=== PATIENT | female | born 1950 | race Two or more races ===

== ENCOUNTER 2021-07-19 10:08 | Inpatient (IN) | payer MEDICARE, BC, OTHER ==
[~2021-07-19] VITALS: Ht 165.1 cm; Wt 87.1 kg
[2021-07-19] MEDS ORDERED: AZITHROMYCIN 500 MG in DEXT 5% WATER 250 ML IV SCH (10:45)
[2021-07-19] MEDS ORDERED: CEFTRIAXONE 1 G PREMIX 50 ML IV ONE (10:45)
[2021-07-19] MEDS ORDERED: DEXAMETHASONE 4MG/ML 1ML VIAL IV ONE (10:45)
[2021-07-19 11:05] LABS: BG BASE EXCESS 0.2 mmol/L (-2.0-2.0); BG CARBOXYHEMOGLOBIN 0.9 % (0.5-1.5); BG DEOXYHEMOGLOBIN 3.8 % (0.0-5.0); BG HCO3 ACT 23.2 mmol/L (22.0-26.0); BG METHEMOGLOBIN 0.2 % (0.0-1.5); BG OXYGEN SATURATION 96.2 % (92.0-98.5); BG OXYHEMOGLOBIN 95.1 % (94.0-97.0); BG PCO2 32.9 mmHg (35.0-45.0); BG PH 7.466 (7.350-7.450); BG PO2 82.8 mmHg (75.0-100.0); BG SAMPLE SITE RIGHT RADIAL; BG VENT MODE MASK - NRB
[2021-07-19 13:33] LABS: BASOPHILS % 1.2 % (0.0-2.0); EOSINOPHILS % 0.3 % (0.0-5.0); HEMATOCRIT. 41.3 % (36.0-48.0); HEMOGLOBIN. 14.1 g/dL (12.0-16.0); LYMPHOCYTES % 12.5 % (20.0-50.0); MEAN CORPUSCULAR HEMOGLOBIN 30.4 pg (28.0-32.0); MEAN CORPUSCULAR VOLUME 88.8 fL (81.0-99.0); MEAN PLATELET VOLUME 9.3 fl (7.4-10.4); MONOCYTES % 6.1 % (2.0-8.0); NEUTROPHILS % 79.9 % (40.0-76.0); PLATELET 123 x1000/uL (130-400); RED BLOOD CELL COUNT 4.65 mill/uL (4.2-5.4); RED CELL DISTRIBUTION WIDTH 14.4 % (11.6-14.6)
[2021-07-19 13:40] LABS: CHLORIDE 102 mEq/L (98-107)
[2021-07-19 16:45] VITALS: BP 150/82
[2021-07-19] MEDS ORDERED: IPRATROPIUM/ALBUTEROL 0.5-3(2.5)MG/3ML NEB HHN PRN (17:45)
[2021-07-19] MEDS ORDERED: MAGNESIUM/ALUMINUM HYDROXIDE/SIMETHICONE 30ML UDC PO PRN (17:45)
[2021-07-19] MEDS ORDERED: DOCUSATE SODIUM 100MG CAPSULE PO PRN (17:45)
[2021-07-19] MEDS ORDERED: NALOXONE HCL 0.4MG/ML VIAL IV PRN (18:15)
[2021-07-19] MEDS: ENOXAPARIN 40MG/0.4ML SYR SUBCUT SCH (18:21)
[2021-07-19 20:00] VITALS: BP 134/60
[2021-07-19] MEDS: SODIUM CHLORIDE 0.9% INJ 3ML FLUSH IVF SCH (21:35)
[2021-07-20] VITALS: BP 153/66
[2021-07-20 04:00] VITALS: BP 156/74
[2021-07-20] MEDS: SODIUM CHLORIDE 0.9% INJ 3ML FLUSH IVF SCH ×3 (05:46→20:25)
[2021-07-20 06:14] LABS: BASOPHILS % 0.4 % (0.0-2.0); HEMATOCRIT. 40.2 % (36.0-48.0); HEMOGLOBIN. 13.5 g/dL (12.0-16.0); LYMPHOCYTES % 9.7 % (20.0-50.0); MEAN CORPUSCULAR HEMOGLOBIN 30.1 pg (28.0-32.0); MEAN CORPUSCULAR VOLUME 89.7 fL (81.0-99.0); MEAN PLATELET VOLUME 9.4 fl (7.4-10.4); MONOCYTES % 8.6 % (2.0-8.0); NEUTROPHILS % 81.3 % (40.0-76.0); PLATELET 163 x1000/uL (130-400); RED BLOOD CELL COUNT 4.48 mill/uL (4.2-5.4); RED CELL DISTRIBUTION WIDTH 14.4 % (11.6-14.6)
[2021-07-20 06:36] LABS: CHLORIDE 101 mEq/L (98-107)
[2021-07-20 08:00] VITALS: BP 150/51
[2021-07-20] MEDS: DEXAMETHASONE 10 MG/ML VIAL IV SCH (08:13)
[2021-07-20] MEDS: CEFTRIAXONE 1,000 MG in DEXTROSE 5% WATER 50 ML IV SCH (11:06)
[2021-07-20] MEDS: AZITHROMYCIN 500 MG in DEXT 5% WATER 250 ML IV SCH (11:06)
[2021-07-20 12:00] VITALS: BP 132/66
[2021-07-20 15:31] LABS: CLARITY URINE CLEAR (CLEAR); COLOR URINE YELLOW (YELLOW); KETONES URINE NEGATIVE (NEGATIVE); LEUKOCYTE ESTERASE URINE NEGATIVE (NEGATIVE); NITRITE URINE NEGATIVE (NEGATIVE); OCCULT BLOOD URINE NEGATIVE (NEGATIVE); PH URINE 5.5 (4.5-8.0); PROTEIN URINE 1+ (NEGATIVE); SPECIFIC GRAVITY URINE 1.021 (1.005-1.030)
[2021-07-20 16:00] VITALS: BP 139/64
[2021-07-20] MEDS: ENOXAPARIN 40MG/0.4ML SYR SUBCUT SCH (18:12)
[2021-07-20 18:54] LABS: BG BASE EXCESS 2.3 mmol/L (-2.0-2.0); BG CARBOXYHEMOGLOBIN 0.6 % (0.5-1.5); BG DEOXYHEMOGLOBIN 10.4 % (0.0-5.0); BG FRACTION INSPIRED OXYGEN 100; BG HCO3 ACT 26.2 mmol/L (22.0-26.0); BG METHEMOGLOBIN 0.1 % (0.0-1.5); BG OXYGEN SATURATION 89.5 % (92.0-98.5); BG OXYHEMOGLOBIN 88.9 % (94.0-97.0); BG PCO2 38.2 mmHg (35.0-45.0); BG PH 7.454 (7.350-7.450); BG PO2 56.7 mmHg (75.0-100.0); BG SAMPLE SITE LEFT RADIAL; BG TOTAL HEMOGLOBIN 14.2 g/dL (12.0-18.0); BG VENT MODE MASK - NRB
[2021-07-20 20:00] VITALS: BP 156/95
[2021-07-20] MEDS: ASCORBIC ACID 500 MG TABLET PO SCH (20:25)
[2021-07-21 00:46] VITALS: BP 148/74
[2021-07-21 04:00] VITALS: BP 142/55
[2021-07-21] MEDS: SODIUM CHLORIDE 0.9% INJ 3ML FLUSH IVF SCH ×3 (05:32→21:38)
[2021-07-21 08:00] VITALS: BP 157/67
[2021-07-21] MEDS: ALBUTEROL 6.7GM HFA INHALER ORI PRN (08:11)
[2021-07-21] MEDS: CHOLECALCIFEROL (D3) 1000 UNIT TABLET PO SCH (08:12)
[2021-07-21] MEDS: DEXAMETHASONE 10 MG/ML VIAL IV SCH (08:12)
[2021-07-21] MEDS: ASCORBIC ACID 500 MG TABLET PO SCH ×2 (08:12→21:38)
[2021-07-21] MEDS: GUAIFENESIN 200MG/10ML SUGAR FREE UDC PO PRN (08:12)
[2021-07-21] MEDS: CEFTRIAXONE 1,000 MG in DEXTROSE 5% WATER 50 ML IV SCH (11:22)
[2021-07-21 12:00] VITALS: BP 138/79
[2021-07-21] MEDS: AZITHROMYCIN 500 MG in DEXT 5% WATER 250 ML IV SCH (12:15)
[2021-07-21 16:00] VITALS: BP 132/60
[2021-07-21] MEDS: ENOXAPARIN 40MG/0.4ML SYR SUBCUT SCH (18:38)
[2021-07-21 20:34] VITALS: BP 150/70
[2021-07-22] MEDS: HYDRALAZINE 20MG/ML VIAL IV PRN ×3 (00:24→16:44)
[2021-07-22] MEDS: MORPHINE SULFATE 2 MG/ML CPJ (NOT FOR IM USE) IV PRN (00:26)
[2021-07-22 00:28] VITALS: BP 201/86
[2021-07-22 04:00] VITALS: BP 147/63
[2021-07-22] MEDS: SODIUM CHLORIDE 0.9% INJ 3ML FLUSH IVF SCH ×3 (06:04→22:00)
[2021-07-22] MEDS: HYDROCODONE/ACETAMINOPHEN 5/325MG TABLET PO PRN (06:04)
[2021-07-22 08:00] VITALS: BP 161/73
[2021-07-22] MEDS: CHOLECALCIFEROL (D3) 1000 UNIT TABLET PO SCH (08:10)
[2021-07-22] MEDS: DEXAMETHASONE 10 MG/ML VIAL IV SCH (08:10)
[2021-07-22] MEDS: ASCORBIC ACID 500 MG TABLET PO SCH ×2 (08:10→20:48)
[2021-07-22] MEDS: CEFTRIAXONE 1,000 MG in DEXTROSE 5% WATER 50 ML IV SCH (11:18)
[2021-07-22] MEDS: AZITHROMYCIN 500 MG in DEXT 5% WATER 250 ML IV SCH (11:19)
[2021-07-22 12:00] VITALS: BP 121/73
[2021-07-22] MEDS: LORAZEPAM 2MG/ML CPJ IV PRN (13:17)
[2021-07-22 16:00] VITALS: BP 188/77
[2021-07-22 20:00] VITALS: BP 172/86
[2021-07-22] MEDS: ALBUTEROL 6.7GM HFA INHALER ORI PRN (20:39)
[2021-07-22] MEDS: ENOXAPARIN 40MG/0.4ML SYR SUBCUT SCH (20:47)
[2021-07-23] VITALS: BP 173/84
[2021-07-23] MEDS: CLONIDINE 0.1MG TABLET PO PRN (00:22)
[2021-07-23] MEDS: ALBUTEROL 6.7GM HFA INHALER ORI PRN ×2 (00:41→05:54)
[2021-07-23 04:00] VITALS: BP 132/75
[2021-07-23] MEDS: HYDROCODONE/ACETAMINOPHEN 5/325MG TABLET PO PRN (05:39)
[2021-07-23] MEDS: SODIUM CHLORIDE 0.9% INJ 3ML FLUSH IVF SCH ×3 (06:00→21:12)
[2021-07-23] MEDS: LORAZEPAM 2MG/ML CPJ IV PRN (06:04)
[2021-07-23] MEDS: ASCORBIC ACID 500 MG TABLET PO SCH ×2 (09:15→21:12)
[2021-07-23] MEDS: CHOLECALCIFEROL (D3) 1000 UNIT TABLET PO SCH (09:16)
[2021-07-23] MEDS: DEXAMETHASONE 10 MG/ML VIAL IV SCH (09:16)
[2021-07-23] MEDS: CEFTRIAXONE 1,000 MG in DEXTROSE 5% WATER 50 ML IV SCH (11:53)
[2021-07-23] MEDS: AZITHROMYCIN 500 MG in DEXT 5% WATER 250 ML IV SCH (11:54)
[2021-07-23 12:00] VITALS: BP 137/65
[2021-07-23 16:00] VITALS: BP 129/70
[2021-07-23] MEDS: ENOXAPARIN 40MG/0.4ML SYR SUBCUT SCH (19:03)
[2021-07-23 20:00] VITALS: BP 137/61
[2021-07-24] VITALS: BP 174/69
[2021-07-24] MEDS: CLONIDINE 0.1MG TABLET PO PRN (00:47)
[2021-07-24 04:00] VITALS: BP 124/58
[2021-07-24] MEDS: SODIUM CHLORIDE 0.9% INJ 3ML FLUSH IVF SCH ×3 (06:12→22:42)
[2021-07-24 08:00] VITALS: BP 170/64
[2021-07-24] MEDS: ASCORBIC ACID 500 MG TABLET PO SCH ×2 (09:07→20:11)
[2021-07-24] MEDS: DEXAMETHASONE 10 MG/ML VIAL IV SCH (09:07)
[2021-07-24] MEDS: CHOLECALCIFEROL (D3) 1000 UNIT TABLET PO SCH (09:07)
[2021-07-24] MEDS: CEFTRIAXONE 1,000 MG in DEXTROSE 5% WATER 50 ML IV SCH (10:13)
[2021-07-24] MEDS: MORPHINE SULFATE 2 MG/ML CPJ (NOT FOR IM USE) IV PRN (10:47)
[2021-07-24 12:00] VITALS: BP 125/62
[2021-07-24 16:00] VITALS: BP 120/65
[2021-07-24 20:00] VITALS: BP 145/67
[2021-07-24] MEDS: ENOXAPARIN 40MG/0.4ML SYR SUBCUT SCH (20:11)
[2021-07-24] MEDS: ACETAMINOPHEN 325MG TABLET PO PRN (20:11)
[2021-07-25] VITALS: BP 165/74
[2021-07-25] MEDS ORDERED: MORPHINE SULFATE 2 MG/ML CPJ (NOT FOR IM USE) IV PRN (01:15)
[2021-07-25 04:00] VITALS: BP 140/79
[2021-07-25] MEDS: SODIUM CHLORIDE 0.9% INJ 3ML FLUSH IVF SCH ×3 (05:15→20:30)
[2021-07-25 07:48] LABS: HEMATOCRIT. 39.2 % (36.0-48.0); MEAN CORPUSCULAR HEMOGLOBIN 30.2 pg (28.0-32.0); MEAN CORPUSCULAR VOLUME 91.2 fL (81.0-99.0); MEAN PLATELET VOLUME 9.2 fl (7.4-10.4); PLATELET 279 x1000/uL (130-400); RED CELL DISTRIBUTION WIDTH 14.6 % (11.6-14.6)
[2021-07-25 08:00] VITALS: BP 136/66
[2021-07-25 08:17] LABS: CHLORIDE 104 mEq/L (98-107)
[2021-07-25] MEDS: CHOLECALCIFEROL (D3) 1000 UNIT TABLET PO SCH (09:01)
[2021-07-25] MEDS: DEXAMETHASONE 10 MG/ML VIAL IV SCH (09:01)
[2021-07-25] MEDS: ASCORBIC ACID 500 MG TABLET PO SCH ×2 (09:01→20:30)
[2021-07-25 12:00] VITALS: BP 143/59
[2021-07-25 14:44] LABS: PLATELET ESTIMATE NORMAL
[2021-07-25 16:00] VITALS: BP 122/65
[2021-07-25] MEDS: HYDROCODONE/ACETAMINOPHEN 5/325MG TABLET PO PRN (17:32)
[2021-07-25 20:00] VITALS: BP 116/64
[2021-07-25] MEDS: ENOXAPARIN 40MG/0.4ML SYR SUBCUT SCH (20:30)
[2021-07-25] MEDS: CLONIDINE 0.1MG TABLET PO PRN (23:32)
[2021-07-26] VITALS: BP 165/64
[2021-07-26 04:00] VITALS: BP 169/82
[2021-07-26] MEDS: GUAIFENESIN 200MG/10ML SUGAR FREE UDC PO PRN (05:53)
[2021-07-26] MEDS: HYDRALAZINE 20MG/ML VIAL IV PRN (05:54)
[2021-07-26] MEDS: SODIUM CHLORIDE 0.9% INJ 3ML FLUSH IVF SCH ×3 (05:55→21:34)
[2021-07-26] MEDS: HYDROCODONE/ACETAMINOPHEN 5/325MG TABLET PO PRN (05:58)
[2021-07-26] MEDS: ASCORBIC ACID 500 MG TABLET PO SCH ×2 (08:17→21:34)
[2021-07-26] MEDS: CHOLECALCIFEROL (D3) 1000 UNIT TABLET PO SCH (08:17)
[2021-07-26] MEDS: DEXAMETHASONE 10 MG/ML VIAL IV SCH (08:17)
[2021-07-26 12:00] VITALS: BP 146/80
[2021-07-26 16:00] VITALS: BP 138/80
[2021-07-26 17:21] LABS: HEMATOCRIT. 40.2 % (36.0-48.0); HEMOGLOBIN. 13.4 g/dL (12.0-16.0); MEAN CORPUSCULAR HEMOGLOBIN 30.2 pg (28.0-32.0); MEAN CORPUSCULAR VOLUME 90.5 fL (81.0-99.0); MEAN PLATELET VOLUME 9.7 fl (7.4-10.4); PLATELET 284 x1000/uL (130-400); RED BLOOD CELL COUNT 4.44 mill/uL (4.2-5.4); RED CELL DISTRIBUTION WIDTH 14.7 % (11.6-14.6)
[2021-07-26 17:46] LABS: CHLORIDE 103 mEq/L (98-107)
[2021-07-26 18:06] LABS: PLATELET ESTIMATE NORMAL
[2021-07-26] MEDS: ENOXAPARIN 40MG/0.4ML SYR SUBCUT SCH (18:14)
[2021-07-26 20:00] VITALS: BP 151/82
[2021-07-27] VITALS: BP 141/60
[2021-07-27 04:00] VITALS: BP 150/72
[2021-07-27] MEDS: SODIUM CHLORIDE 0.9% INJ 3ML FLUSH IVF SCH ×3 (05:32→21:01)
[2021-07-27 08:00] VITALS: BP 154/70
[2021-07-27] MEDS: ASCORBIC ACID 500 MG TABLET PO SCH ×2 (08:26→21:01)
[2021-07-27] MEDS: DEXAMETHASONE 10 MG/ML VIAL IV SCH (08:27)
[2021-07-27] MEDS: CHOLECALCIFEROL (D3) 1000 UNIT TABLET PO SCH (08:27)
[2021-07-27 09:37] LABS: HEMATOCRIT. 38.2 % (36.0-48.0); HEMOGLOBIN. 12.6 g/dL (12.0-16.0); MEAN CORPUSCULAR HEMOGLOBIN 29.9 pg (28.0-32.0); MEAN CORPUSCULAR VOLUME 90.8 fL (81.0-99.0); MEAN PLATELET VOLUME 9.5 fl (7.4-10.4); PLATELET 279 x1000/uL (130-400); RED CELL DISTRIBUTION WIDTH 14.7 % (11.6-14.6)
[2021-07-27 09:49] LABS: CHLORIDE 104 mEq/L (98-107)
[2021-07-27] MEDS ORDERED: LIDOCAINE HCL 1% 20ML VIAL (Pyxis) INJ ONE (10:03)
[2021-07-27 10:55] LABS: PLATELET ESTIMATE NORMAL
[2021-07-27 12:00] VITALS: BP 130/66
[2021-07-27] MEDS: HYDROCODONE/ACETAMINOPHEN 5/325MG TABLET PO PRN ×2 (13:47→21:01)
[2021-07-27 16:00] VITALS: BP 185/88
[2021-07-27] MEDS: ENOXAPARIN 40MG/0.4ML SYR SUBCUT SCH (18:05)
[2021-07-27 20:00] VITALS: BP 161/94
[2021-07-27] MEDS: GUAIFENESIN 200MG/10ML SUGAR FREE UDC PO PRN (21:01)
[2021-07-27] MEDS: DIPHENHYDRAMINE 50MG/ML VIAL IV PRN (21:01)
[2021-07-27] MEDS: HYDRALAZINE 20MG/ML VIAL IV PRN (23:36)
[2021-07-28] VITALS: BP 179/87
[2021-07-28] MEDS: DIPHENHYDRAMINE 50MG/ML VIAL IV PRN (01:15)
[2021-07-28] MEDS: LORAZEPAM 0.5MG TABLET PO PRN ×2 (02:28→23:04)
[2021-07-28] MEDS: HYDROCODONE/ACETAMINOPHEN 5/325MG TABLET PO PRN ×3 (02:35→22:36)
[2021-07-28 04:00] VITALS: BP 133/81
[2021-07-28] MEDS: SODIUM CHLORIDE 0.9% INJ 3ML FLUSH IVF SCH ×4 (05:10→21:41)
[2021-07-28 08:00] VITALS: BP 130/79
[2021-07-28] MEDS: CHOLECALCIFEROL (D3) 1000 UNIT TABLET PO SCH (08:42)
[2021-07-28] MEDS: DEXAMETHASONE 10 MG/ML VIAL IV SCH (08:42)
[2021-07-28] MEDS: ASCORBIC ACID 500 MG TABLET PO SCH ×2 (08:42→21:40)
[2021-07-28 11:00] VITALS: BP 146/86
[2021-07-28] MEDS ORDERED: SODIUM CHLORIDE 45ML SPRAY NS PRN (15:00)
[2021-07-28 16:00] VITALS: BP 144/83
[2021-07-28] MEDS: ENOXAPARIN 40MG/0.4ML SYR SUBCUT SCH (18:03)
[2021-07-28 20:00] VITALS: BP 138/84
[2021-07-29] VITALS: BP 142/76
[2021-07-29 08:00] VITALS: BP 167/77
[2021-07-29] MEDS: HYDROCODONE/ACETAMINOPHEN 5/325MG TABLET PO PRN (08:51)
[2021-07-29] MEDS: CHOLECALCIFEROL (D3) 1000 UNIT TABLET PO SCH (08:51)
[2021-07-29] MEDS: DEXAMETHASONE 10 MG/ML VIAL IV SCH (08:52)
[2021-07-29] MEDS: ASCORBIC ACID 500 MG TABLET PO SCH ×2 (08:52→20:43)
[2021-07-29 12:00] VITALS: BP 140/81
[2021-07-29] MEDS ORDERED: IPRATROPIUM/ALBUTEROL 0.5-3(2.5)MG/3ML NEB HHN PRN (12:45)
[2021-07-29] MEDS: SODIUM CHLORIDE 0.9% INJ 3ML FLUSH IVF SCH ×2 (17:29→22:14)
[2021-07-29] MEDS: METHYLPREDNISOLONE SOD SUCC 40 MG/ML VIAL IV SCH ×2 (17:44→20:42)
[2021-07-29 18:00] VITALS: BP 172/105
[2021-07-29] MEDS: HYDRALAZINE 20MG/ML VIAL IV PRN (18:06)
[2021-07-29] MEDS: LORAZEPAM 0.5MG TABLET PO PRN (18:45)
[2021-07-29 20:00] VITALS: BP 140/74
[2021-07-29] MEDS: ENOXAPARIN 40MG/0.4ML SYR SUBCUT SCH (20:42)
[2021-07-29 22:00] VITALS: BP 140/78
[2021-07-30] VITALS (21 sets, daily range): BP systolic 129–167; BP diastolic 69–129
[2021-07-30] MEDS: LORAZEPAM 0.5MG TABLET PO PRN (00:39)
[2021-07-30] MEDS: METHYLPREDNISOLONE SOD SUCC 40 MG/ML VIAL IV SCH ×3 (04:05→20:56)
[2021-07-30] MEDS: HYDRALAZINE 20MG/ML VIAL IV PRN (05:20)
[2021-07-30] MEDS: SODIUM CHLORIDE 0.9% INJ 3ML FLUSH IVF SCH ×3 (05:20→22:55)
[2021-07-30] MEDS: CHOLECALCIFEROL (D3) 1000 UNIT TABLET PO SCH (08:44)
[2021-07-30] MEDS: ASCORBIC ACID 500 MG TABLET PO SCH ×2 (08:44→20:56)
[2021-07-30] MEDS: ENOXAPARIN 40MG/0.4ML SYR SUBCUT SCH (17:50)
[2021-07-30] MEDS: ACETAMINOPHEN 325MG TABLET PO PRN (21:06)
[2021-07-30] MEDS ORDERED: NALOXONE HCL 0.4MG/ML VIAL IV PRN (23:30)
[2021-07-30] MEDS: MORPHINE SULFATE 2 MG/ML CPJ (NOT FOR IM USE) IV PRN (23:31)
[2021-07-31] VITALS (12 sets, daily range): BP systolic 127–155; BP diastolic 41–93
[2021-07-31] MEDS: HYDRALAZINE 20MG/ML VIAL IV PRN ×2 (00:47→08:47)
[2021-07-31] MEDS: METHYLPREDNISOLONE SOD SUCC 40 MG/ML VIAL IV SCH ×3 (05:23→21:10)
[2021-07-31] MEDS: SODIUM CHLORIDE 0.9% INJ 3ML FLUSH IVF SCH ×3 (05:23→21:10)
[2021-07-31] MEDS: CHOLECALCIFEROL (D3) 1000 UNIT TABLET PO SCH (08:47)
[2021-07-31] MEDS: LORAZEPAM 0.5MG TABLET PO PRN (08:47)
[2021-07-31] MEDS: ASCORBIC ACID 500 MG TABLET PO SCH ×2 (08:47→21:10)
[2021-07-31] MEDS: IPRATROPIUM/ALBUTEROL 0.5-3(2.5)MG/3ML NEB HHN SCH ×2 (12:08→20:33)
[2021-07-31] MEDS: ENOXAPARIN 40MG/0.4ML SYR SUBCUT SCH (18:38)
[2021-08-01] VITALS (13 sets, daily range): BP systolic 117–168; BP diastolic 55–94
[2021-08-01] MEDS: IPRATROPIUM/ALBUTEROL 0.5-3(2.5)MG/3ML NEB HHN SCH ×4 (00:47→21:01)
[2021-08-01] MEDS: SODIUM CHLORIDE 0.9% INJ 3ML FLUSH IVF SCH ×3 (05:00→21:35)
[2021-08-01] MEDS: METHYLPREDNISOLONE SOD SUCC 40 MG/ML VIAL IV SCH ×3 (05:00→21:34)
[2021-08-01] MEDS: CHOLECALCIFEROL (D3) 1000 UNIT TABLET PO SCH (09:57)
[2021-08-01] MEDS: ASCORBIC ACID 500 MG TABLET PO SCH ×2 (09:57→21:34)
[2021-08-01] MEDS: HYDRALAZINE 20MG/ML VIAL IV PRN (12:44)
[2021-08-01] MEDS: ENOXAPARIN 40MG/0.4ML SYR SUBCUT SCH (18:16)
[2021-08-01] MEDS: MORPHINE SULFATE 2 MG/ML CPJ (NOT FOR IM USE) IV PRN (22:20)
[2021-08-02] VITALS (11 sets, daily range): BP systolic 112–157; BP diastolic 59–83
[2021-08-02] MEDS: METHYLPREDNISOLONE SOD SUCC 40 MG/ML VIAL IV SCH ×3 (03:30→21:36)
[2021-08-02] MEDS: CLONIDINE 0.1MG TABLET PO PRN (03:31)
[2021-08-02] MEDS: IPRATROPIUM/ALBUTEROL 0.5-3(2.5)MG/3ML NEB HHN SCH ×4 (04:03→21:33)
[2021-08-02] MEDS: SODIUM CHLORIDE 0.9% INJ 3ML FLUSH IVF SCH ×3 (05:44→21:36)
[2021-08-02] MEDS: CHOLECALCIFEROL (D3) 1000 UNIT TABLET PO SCH (09:16)
[2021-08-02] MEDS: ASCORBIC ACID 500 MG TABLET PO SCH ×2 (09:16→21:36)
[2021-08-02] MEDS: ENOXAPARIN 40MG/0.4ML SYR SUBCUT SCH (21:36)
[2021-08-02] MEDS: HYDRALAZINE 20MG/ML VIAL IV PRN (23:40)
[2021-08-03] VITALS (13 sets, daily range): BP systolic 117–168; BP diastolic 49–85
[2021-08-03] MEDS: IPRATROPIUM/ALBUTEROL 0.5-3(2.5)MG/3ML NEB HHN SCH ×4 (02:13→20:16)
[2021-08-03] MEDS: MORPHINE SULFATE 2 MG/ML CPJ (NOT FOR IM USE) IV PRN ×3 (03:38→11:43)
[2021-08-03] MEDS: METHYLPREDNISOLONE SOD SUCC 40 MG/ML VIAL IV SCH ×3 (03:38→21:25)
[2021-08-03] MEDS: SODIUM CHLORIDE 0.9% INJ 3ML FLUSH IVF SCH ×3 (06:36→21:26)
[2021-08-03 08:15] LABS: HEMATOCRIT 32.7 % (36.0-48.0); HEMOGLOBIN 10.6 g/dL (12.0-16.0); MEAN CORPUSCULAR HEMOGLOBIN 29.5 pg (28.0-32.0); MEAN CORPUSCULAR VOLUME 90.8 fL (81.0-99.0); PLATELET 168 x1000/uL (130-400); RED CELL DISTRIBUTION WIDTH 14.5 % (11.6-14.6)
[2021-08-03] MEDS: ASCORBIC ACID 500 MG TABLET PO SCH ×2 (08:34→21:26)
[2021-08-03] MEDS: CHOLECALCIFEROL (D3) 1000 UNIT TABLET PO SCH (08:35)
[2021-08-03 08:38] LABS: CHLORIDE 104 mEq/L (98-107)
[2021-08-03] MEDS: ENOXAPARIN 40MG/0.4ML SYR SUBCUT SCH (18:47)
[2021-08-03] MEDS: LORAZEPAM 0.5MG TABLET PO PRN (18:48)
[2021-08-04] VITALS (12 sets, daily range): BP systolic 128–159; BP diastolic 52–88
[2021-08-04] MEDS: IPRATROPIUM/ALBUTEROL 0.5-3(2.5)MG/3ML NEB HHN SCH ×4 (00:46→21:31)
[2021-08-04] MEDS: METHYLPREDNISOLONE SOD SUCC 40 MG/ML VIAL IV SCH ×3 (05:41→23:56)
[2021-08-04] MEDS: SODIUM CHLORIDE 0.9% INJ 3ML FLUSH IVF SCH ×3 (05:41→21:00)
[2021-08-04] MEDS: HYDRALAZINE 20MG/ML VIAL IV PRN (05:41)
[2021-08-04] MEDS: ASCORBIC ACID 500 MG TABLET PO SCH ×2 (08:32→20:55)
[2021-08-04] MEDS: CHOLECALCIFEROL (D3) 1000 UNIT TABLET PO SCH (08:32)
[2021-08-04] MEDS: HYDROCODONE/ACETAMINOPHEN 5/325MG TABLET PO PRN ×2 (12:06→20:56)
[2021-08-04] MEDS: MORPHINE SULFATE 2 MG/ML CPJ (NOT FOR IM USE) IV PRN (15:00)
[2021-08-04] MEDS: ENOXAPARIN 40MG/0.4ML SYR SUBCUT SCH (18:17)
[2021-08-04] MEDS: LORAZEPAM 0.5MG TABLET PO PRN (18:55)
[2021-08-04] MEDS: ONDANSETRON HCL 4MG/2ML INJ IV PRN (23:56)
[2021-08-05] VITALS (13 sets, daily range): BP systolic 70–176; BP diastolic 39–99
[2021-08-05] MEDS: CLONIDINE 0.1MG TABLET PO PRN (01:16)
[2021-08-05] MEDS: SODIUM CHLORIDE 0.9% INJ 3ML FLUSH IVF SCH ×3 (05:45→21:04)
[2021-08-05] MEDS: IPRATROPIUM/ALBUTEROL 0.5-3(2.5)MG/3ML NEB HHN SCH ×3 (07:49→21:34)
[2021-08-05] MEDS: ASCORBIC ACID 500 MG TABLET PO SCH ×2 (11:28→21:01)
[2021-08-05] MEDS: CHOLECALCIFEROL (D3) 1000 UNIT TABLET PO SCH (11:28)
[2021-08-05] MEDS: METHYLPREDNISOLONE SOD SUCC 40 MG/ML VIAL IV SCH (14:11)
[2021-08-05] MEDS: ENOXAPARIN 40MG/0.4ML SYR SUBCUT SCH (19:55)
[2021-08-05] MEDS: ONDANSETRON HCL 4MG/2ML INJ IV PRN (21:01)
[2021-08-05] MEDS: DIPHENHYDRAMINE 50MG/ML VIAL IV PRN (21:01)
[2021-08-06] VITALS (14 sets, daily range): BP systolic 112–160; BP diastolic 52–95
[2021-08-06] MEDS: METHYLPREDNISOLONE SOD SUCC 40 MG/ML VIAL IV SCH ×2 (00:57→13:38)
[2021-08-06] MEDS: IPRATROPIUM/ALBUTEROL 0.5-3(2.5)MG/3ML NEB HHN SCH ×4 (02:21→21:15)
[2021-08-06] MEDS: HYDRALAZINE 20MG/ML VIAL IV PRN (03:15)
[2021-08-06] MEDS: SODIUM CHLORIDE 0.9% INJ 3ML FLUSH IVF SCH ×3 (05:01→21:01)
[2021-08-06] MEDS: CHOLECALCIFEROL (D3) 1000 UNIT TABLET PO SCH (10:01)
[2021-08-06] MEDS: ASCORBIC ACID 500 MG TABLET PO SCH ×2 (10:01→21:00)
[2021-08-07] VITALS (14 sets, daily range): BP systolic 121–155; BP diastolic 45–99
[2021-08-07] MEDS: METHYLPREDNISOLONE SOD SUCC 40 MG/ML VIAL IV SCH ×2 (00:42→12:00)
[2021-08-07] MEDS: IPRATROPIUM/ALBUTEROL 0.5-3(2.5)MG/3ML NEB HHN SCH ×4 (01:07→20:59)
[2021-08-07] MEDS: SODIUM CHLORIDE 0.9% INJ 3ML FLUSH IVF SCH ×3 (06:00→21:00)
[2021-08-07] MEDS: CHOLECALCIFEROL (D3) 1000 UNIT TABLET PO SCH (08:43)
[2021-08-07] MEDS: GUAIFENESIN 200MG/10ML SUGAR FREE UDC PO PRN (08:43)
[2021-08-07] MEDS: ASCORBIC ACID 500 MG TABLET PO SCH ×2 (08:43→20:57)
[2021-08-07] MEDS: ACETAMINOPHEN 325MG TABLET PO PRN ×2 (08:43→18:28)
[2021-08-08] VITALS (19 sets, daily range): BP systolic 105–175; BP diastolic 59–85
[2021-08-08] MEDS: IPRATROPIUM/ALBUTEROL 0.5-3(2.5)MG/3ML NEB HHN SCH ×3 (02:43→14:59)
[2021-08-08] MEDS: HYDRALAZINE 20MG/ML VIAL IV PRN (06:06)
[2021-08-08] MEDS: SODIUM CHLORIDE 0.9% INJ 3ML FLUSH IVF SCH ×3 (06:07→20:36)
[2021-08-08] MEDS: CHOLECALCIFEROL (D3) 1000 UNIT TABLET PO SCH (08:44)
[2021-08-08] MEDS: ASCORBIC ACID 500 MG TABLET PO SCH ×2 (08:44→20:36)
[2021-08-08] MEDS: METHYLPREDNISOLONE SOD SUCC 40 MG/ML VIAL IV SCH (08:45)
[2021-08-08] MEDS: ACETAMINOPHEN 325MG TABLET PO PRN (08:52)
[2021-08-09] VITALS (13 sets, daily range): BP systolic 107–161; BP diastolic 57–83
[2021-08-09] MEDS: IPRATROPIUM/ALBUTEROL 0.5-3(2.5)MG/3ML NEB HHN SCH ×4 (00:19→21:10)
[2021-08-09 05:14] LABS: HEMOGLOBIN. 10.4 g/dL (12.0-16.0); MEAN CORPUSCULAR HEMOGLOBIN 29.7 pg (28.0-32.0); MEAN CORPUSCULAR VOLUME 91.2 fL (81.0-99.0); MEAN PLATELET VOLUME 9.7 fl (7.4-10.4); PLATELET 177 x1000/uL (130-400); RED BLOOD CELL COUNT 3.51 mill/uL (4.2-5.4); RED CELL DISTRIBUTION WIDTH 14.7 % (11.6-14.6)
[2021-08-09 05:17] LABS: CHLORIDE 100 mEq/L (98-107)
[2021-08-09] MEDS: SODIUM CHLORIDE 0.9% INJ 3ML FLUSH IVF SCH ×3 (06:18→21:03)
[2021-08-09] MEDS: CHOLECALCIFEROL (D3) 1000 UNIT TABLET PO SCH (08:40)
[2021-08-09] MEDS: METHYLPREDNISOLONE SOD SUCC 40 MG/ML VIAL IV SCH (08:40)
[2021-08-09] MEDS: ASCORBIC ACID 500 MG TABLET PO SCH ×2 (08:40→21:03)
[2021-08-09] MEDS: POLYETHYLENE GLYCOL 3350 (17GM) 1 DOSE PACK PO SCH (09:00)
[2021-08-09] MEDS ORDERED: MORPHINE SULFATE 2 MG/ML CPJ (NOT FOR IM USE) IV PRN (09:45)
[2021-08-09] MEDS ORDERED: NALOXONE HCL 0.4MG/ML VIAL IV PRN (10:00)
[2021-08-09] MEDS: LORAZEPAM 0.5MG TABLET PO PRN (10:04)
[2021-08-09 23:01] LABS: PLATELET ESTIMATE NORMAL
[2021-08-10] VITALS (12 sets, daily range): BP systolic 113–165; BP diastolic 54–95
[2021-08-10] MEDS: IPRATROPIUM/ALBUTEROL 0.5-3(2.5)MG/3ML NEB HHN SCH ×4 (03:44→20:55)
[2021-08-10] MEDS: SODIUM CHLORIDE 0.9% INJ 3ML FLUSH IVF SCH ×3 (06:01→20:20)
[2021-08-10] MEDS: POLYETHYLENE GLYCOL 3350 (17GM) 1 DOSE PACK PO SCH (09:00)
[2021-08-10] MEDS: CHOLECALCIFEROL (D3) 1000 UNIT TABLET PO SCH (09:52)
[2021-08-10] MEDS: METHYLPREDNISOLONE SOD SUCC 40 MG/ML VIAL IV SCH (09:52)
[2021-08-10] MEDS: ASCORBIC ACID 500 MG TABLET PO SCH ×2 (09:52→20:19)
[2021-08-10] MEDS: LORAZEPAM 0.5MG TABLET PO PRN ×2 (09:52→15:16)
[2021-08-11] VITALS (13 sets, daily range): BP systolic 102–180; BP diastolic 48–89
[2021-08-11] MEDS: IPRATROPIUM/ALBUTEROL 0.5-3(2.5)MG/3ML NEB HHN SCH ×3 (01:15→21:23)
[2021-08-11] MEDS: SODIUM CHLORIDE 0.9% INJ 3ML FLUSH IVF SCH ×3 (05:54→20:35)
[2021-08-11] MEDS: POLYETHYLENE GLYCOL 3350 (17GM) 1 DOSE PACK PO SCH (09:00)
[2021-08-11 09:02] LABS: BG BASE EXCESS 12.5 mmol/L (-2.0-2.0); BG CARBOXYHEMOGLOBIN 0.3 % (0.5-1.5); BG FRACTION INSPIRED OXYGEN 99.8; BG HCO3 ACT 37.7 mmol/L (22.0-26.0); BG METHEMOGLOBIN 0.3 % (0.0-1.5); BG OXYHEMOGLOBIN 97.4 % (94.0-97.0); BG PCO2 52.3 mmHg (35.0-45.0); BG PH 7.476 (7.350-7.450); BG SAMPLE SITE LEFT RADIAL; BG TOTAL HEMOGLOBIN 10.3 g/dL (12.0-18.0); BG VENT MODE MASK - NRB
[2021-08-11] MEDS: LORAZEPAM 0.5MG TABLET PO PRN ×2 (09:48→14:45)
[2021-08-11] MEDS: METHYLPREDNISOLONE SOD SUCC 40 MG/ML VIAL IV SCH (09:48)
[2021-08-11] MEDS: ASCORBIC ACID 500 MG TABLET PO SCH ×2 (09:48→20:35)
[2021-08-11] MEDS: CHOLECALCIFEROL (D3) 1000 UNIT TABLET PO SCH (09:48)
[2021-08-12] VITALS (13 sets, daily range): BP systolic 106–158; BP diastolic 39–89
[2021-08-12] MEDS: IPRATROPIUM/ALBUTEROL 0.5-3(2.5)MG/3ML NEB HHN SCH ×4 (01:07→21:45)
[2021-08-12] MEDS: SODIUM CHLORIDE 0.9% INJ 3ML FLUSH IVF SCH ×3 (06:16→21:16)
[2021-08-12] MEDS: POLYETHYLENE GLYCOL 3350 (17GM) 1 DOSE PACK PO SCH (09:00)
[2021-08-12] MEDS: METHYLPREDNISOLONE SOD SUCC 40 MG/ML VIAL IV SCH (09:19)
[2021-08-12] MEDS: ASCORBIC ACID 500 MG TABLET PO SCH ×2 (09:20→21:16)
[2021-08-12] MEDS: CHOLECALCIFEROL (D3) 1000 UNIT TABLET PO SCH (09:21)
[2021-08-12] MEDS: LORAZEPAM 0.5MG TABLET PO PRN ×3 (09:29→21:16)
[2021-08-13] VITALS (11 sets, daily range): BP systolic 101–161; BP diastolic 48–72
[2021-08-13] MEDS: IPRATROPIUM/ALBUTEROL 0.5-3(2.5)MG/3ML NEB HHN SCH ×4 (02:50→20:20)
[2021-08-13] MEDS: HYDRALAZINE 20MG/ML VIAL IV PRN (04:21)
[2021-08-13] MEDS: SODIUM CHLORIDE 0.9% INJ 3ML FLUSH IVF SCH ×3 (05:00→22:43)
[2021-08-13] MEDS: LORAZEPAM 0.5MG TABLET PO PRN ×2 (08:13→14:45)
[2021-08-13] MEDS: METHYLPREDNISOLONE SOD SUCC 40 MG/ML VIAL IV SCH (08:13)
[2021-08-13] MEDS: CHOLECALCIFEROL (D3) 1000 UNIT TABLET PO SCH (08:13)
[2021-08-13] MEDS: ASCORBIC ACID 500 MG TABLET PO SCH ×2 (08:13→22:40)
[2021-08-13] MEDS: POLYETHYLENE GLYCOL 3350 (17GM) 1 DOSE PACK PO SCH (08:14)
[2021-08-13] MEDS: ACETAMINOPHEN 325MG TABLET PO PRN (20:20)
[2021-08-14] VITALS (10 sets, daily range): BP systolic 110–154; BP diastolic 51–76
[2021-08-14] MEDS: LORAZEPAM 0.5MG TABLET PO PRN ×2 (00:07→08:49)
[2021-08-14] MEDS: DIPHENHYDRAMINE 50MG/ML VIAL IV PRN (00:12)
[2021-08-14] MEDS: SODIUM CHLORIDE 0.9% INJ 3ML FLUSH IVF SCH ×2 (06:39→13:05)
[2021-08-14] MEDS: IPRATROPIUM/ALBUTEROL 0.5-3(2.5)MG/3ML NEB HHN SCH ×2 (08:32→15:39)
[2021-08-14] MEDS: POLYETHYLENE GLYCOL 3350 (17GM) 1 DOSE PACK PO SCH ×2 (08:49→08:51)
[2021-08-14] MEDS: METHYLPREDNISOLONE SOD SUCC 40 MG/ML VIAL IV SCH (08:49)
[2021-08-14] MEDS: ASCORBIC ACID 500 MG TABLET PO SCH (08:49)
[2021-08-14] MEDS: CHOLECALCIFEROL (D3) 1000 UNIT TABLET PO SCH (08:49)
[2021-08-14] MEDS ORDERED: PREDNISONE 20MG TABLET PO SCH (14:45)
[2021-08-14] MEDS: ACETAMINOPHEN 325MG TABLET PO PRN (15:04)
== END 2021-08-14 18:53 | disposition short-term general hospital (02) | DRG 871 ==
LOC: ER 10:31 → ENRESERV 15:09 → 7WST 16:59 → 5EST 07-29 15:00
PROVIDERS: ADMIT Internal Medicine; ATTEND Internal Medicine
PROC: 05HY33Z Insertion of Infusion Device into Upper Vein, Percutaneous Approach (ICD-10-PCS; principal; 2021-07-27)
PROC: B54MZZA Ultrasonography of Right Upper Extremity Veins, Guidance (ICD-10-PCS; 2021-07-27)
DX: A41.89 Other specified sepsis (principal); U07.1 COVID-19; J12.82 Pneumonia due to coronavirus disease 2019; J96.01 Acute respiratory failure with hypoxia; J44.0 Chronic obstructive pulmonary disease with (acute) lower respiratory infection; J98.11 Atelectasis; E87.1 Hypo-osmolality and hyponatremia; E46 Unspecified protein-calorie malnutrition; N17.9 Acute kidney failure, unspecified; G93.40 Encephalopathy, unspecified; D64.9 Anemia, unspecified; F43.21 Adjustment disorder with depressed mood; F41.9 Anxiety disorder, unspecified; F17.210 Nicotine dependence, cigarettes, uncomplicated; Z71.6 Tobacco abuse counseling; Z68.29 Body mass index [BMI] 29.0-29.9, adult
CPT/HCPCS: 36415; 36600; 71045; 76937; 80048; 80053; 81003; 82375; 82805; 83880; 84443; 84484; 85025; 85027; 87426; 93005; 93970; 94640; 97110; 97162; 97166; 97530; 97535; 99285; C1725; C1893; J0360; J0456; J0696; J1100; J1200; J1650; J2060; J2270; J2405; J2920; J3490; J7040; J7060; U0003; U0005

== ENCOUNTER → 2021-09-04 | Outpatient (CLI) | payer MEDICARE, BC ==
[~2021-09-04] MED LIST: AMLO5TAB88 MT; ASCO500C18 MT; ASPI-986 PO; ATROV3 BOTHNSTRLS; B25 MT; CHOL400D7 MT; CLON-457 MT; DEXTL MT; DICL100G31 TP; DOCU-150 MT; ERGO80009; HYDR-4133 MT; IOHEXOL-350 100 ML BOTTLE ONE; LACT10SO30 MT; LACT330L PO; LORA2DIS6 SQ; METH1POW MC; MORP10SY6 MT; ONDA4TAB11 PO; POLY1POW3 MC; PSYL575P22 MT; RISP1TAB97 MT; SENN-257 MT; SERT20OR6 PO; TOPUD PO; TRAM50TA3 MT; ZINC10OI TP
== END | disposition home or self-care (01) ==
LOC: CT 12:52
PROVIDERS: ATTEND Internal Medicine Critical Care Medicine
DX: I70.202 Unspecified atherosclerosis of native arteries of extremities, left leg (principal); I74.5 Embolism and thrombosis of iliac artery; I51.7 Cardiomegaly; J84.89 Other specified interstitial pulmonary diseases; I82.409 Acute embolism and thrombosis of unspecified deep veins of unspecified lower extremity; I99.8 Other disorder of circulatory system
CPT/HCPCS: 75635; Q9967

== ENCOUNTER 2021-09-10 11:00 | Inpatient (IN) | payer MEDICARE, BC, OTHER ==
[2021-09-10] VITALS (15 sets, daily range): BP systolic 53–166; BP diastolic 26–81
[~2021-09-10] VITALS: Ht 188 cm; Wt 87.6 kg
[2021-09-10] MEDS ORDERED: PAPAVERINE HCL 30 MG/ML 2ML IV ONE (11:24)
[2021-09-10] MEDS ORDERED: LIDOCAINE HCL 1% 20ML VIAL (Pyxis) INJ ONE (11:24)
[2021-09-10] MEDS ORDERED: BACITRACIN 15GM TUBE TOP ONE (11:24)
[2021-09-10] MEDS ORDERED: BUPIVACAINE HCL/PF 0.5% (5MG/ML) 10ML ONE (11:25)
[2021-09-10] MEDS ORDERED: HEPARIN SODIUM 1,000 UNIT/1ML VIAL IV ONE ×3 (11:25→11:56)
[2021-09-10] MEDS ORDERED: THROMBIN (BOVINE) 5000 UNITS/VIAL TOP ONE ×2 (11:25→11:55)
[2021-09-10] MEDS ORDERED: POLYMYXIN B SULFATE 500000 UNITS/VIAL ONE (11:26)
[2021-09-10] MEDS ORDERED: LIDOCAINE HCL/PF 1% 10 MG/ML 5ML VIAL ONE (11:30)
[2021-09-10] MEDS ORDERED: FENTANYL CITRATE/PF 50MCG/ML 2ML VIAL ONE (11:30)
[2021-09-10] MEDS ORDERED: PROPOFOL 200MG/20ML VIAL IV ONE (11:30)
[2021-09-10] MEDS ORDERED: MIDAZOLAM HCL 2 MG/2 ML VIAL ONE (11:30)
[2021-09-10] MEDS ORDERED: PROPOFOL 10MG/ML 100ML 100 ML IV ONE (12:11)
[2021-09-10] MEDS ORDERED: CEFAZOLIN SODIUM 1000MG/VIAL ONE (12:47)
[2021-09-10] MEDS ORDERED: MORPHINE SULFATE 4 MG/ML CPJ (NOT FOR IM USE) IV PRN (14:00)
[2021-09-10] MEDS ORDERED: HEPARIN 1000 UNITS/ML 10ML ONE (14:08)
[2021-09-10] MEDS ORDERED: MORPHINE SULFATE 2 MG/ML CPJ (NOT FOR IM USE) IV PRN ×2 (14:15→14:30)
[2021-09-10] MEDS ORDERED: HYDRALAZINE 20MG/ML VIAL IV PRN (14:30)
[2021-09-10] MEDS ORDERED: ONDANSETRON HCL 4MG/2ML INJ IV PRN (14:30)
[2021-09-10] MEDS ORDERED: FENTANYL CITRATE/PF 50MCG/ML 2ML VIAL IV PRN (14:30)
[2021-09-10] MEDS ORDERED: NALOXONE HCL 0.4MG/ML VIAL IV PRN (15:30)
[2021-09-10 17:23] LABS: HEMATOCRIT 36.5 % (36.0-48.0); HEMOGLOBIN 11.6 g/dL (12.0-16.0); MEAN CORPUSCULAR HEMOGLOBIN 31.1 pg (28.0-32.0); MEAN CORPUSCULAR VOLUME 97.7 fL (81.0-99.0); PLATELET 212 x1000/uL (130-400); RED BLOOD CELL COUNT 3.73 mill/uL (4.2-5.4); RED CELL DISTRIBUTION WIDTH 20.6 % (11.6-14.6)
[2021-09-10] MEDS ORDERED: TOPUD PO (17:25)
[2021-09-10] MEDS ORDERED: ASPI-986 PO (17:25)
[2021-09-10] MEDS ORDERED: CHOL400D7 MT (17:25)
[2021-09-10] MEDS ORDERED: AMLO5TAB88 MT (17:25)
[2021-09-10] MEDS ORDERED: CLON-457 MT (17:25)
[2021-09-10] MEDS ORDERED: ASCO500C18 MT (17:25)
[2021-09-10 17:35] LABS: INR 1.1; PROTHROMBIN TIME 11.4 sec (9.6-11.0)
[2021-09-10] MEDS ORDERED: DICL100G31 TP (17:38)
[2021-09-10] MEDS ORDERED: ATROV3 BOTHNSTRLS (17:38)
[2021-09-10] MEDS ORDERED: B25 MT (17:38)
[2021-09-10] MEDS ORDERED: ONDA4TAB11 PO (17:38)
[2021-09-10] MEDS ORDERED: RISP1TAB97 MT (17:38)
[2021-09-10] MEDS ORDERED: SERT20OR6 PO (17:38)
[2021-09-10] MEDS ORDERED: ERGO80009 (17:38)
[2021-09-10] MEDS ORDERED: METH1POW MC (17:38)
[2021-09-10] MEDS ORDERED: ZINC10OI TP (17:38)
[2021-09-10] MEDS ORDERED: POLY1POW3 MC (17:38)
[2021-09-10] MEDS ORDERED: HYDR-4133 MT (17:38)
[2021-09-10] MEDS ORDERED: SENN-257 MT (17:38)
[2021-09-10] MEDS ORDERED: DEXTL MT (17:38)
[2021-09-10] MEDS ORDERED: DOCU-150 MT (17:38)
[2021-09-10] MEDS ORDERED: LORA2DIS6 SQ (17:38)
[2021-09-10] MEDS ORDERED: MORP10SY6 MT (17:38)
[2021-09-10] MEDS ORDERED: LACT330L PO (17:38)
[2021-09-10] MEDS ORDERED: PSYL575P22 MT (17:38)
[2021-09-10] MEDS ORDERED: LACT10SO30 MT (17:38)
[2021-09-10] MEDS ORDERED: TRAM50TA3 MT (17:38)
[2021-09-10 17:41] LABS: CHLORIDE 103 mEq/L (98-107)
[2021-09-10] MEDS ORDERED: APIXABAN 5 MG TABLET PO NR (21:00)
[2021-09-10] MEDS: RISPERIDONE 1MG TABLET PO SCH (21:46)
[2021-09-11] VITALS (12 sets, daily range): BP systolic 94–126; BP diastolic 59–90
[2021-09-11] MEDS: LORAZEPAM 0.5MG TABLET PO PRN (00:31)
[2021-09-11] MEDS: HYDROCODONE/APAP 7.5/325MG 1 TAB TABLET PO PRN ×2 (00:33→06:00)
[2021-09-11 06:27] LABS: BASOPHILS % 0.4 % (0.0-2.0); HEMATOCRIT. 28.9 % (36.0-48.0); HEMOGLOBIN. 9.5 g/dL (12.0-16.0); LYMPHOCYTES % 8.8 % (20.0-50.0); MEAN CORPUSCULAR HEMOGLOBIN 31.5 pg (28.0-32.0); MEAN CORPUSCULAR VOLUME 96.1 fL (81.0-99.0); MEAN PLATELET VOLUME 8.9 fl (7.4-10.4); MONOCYTES % 6.5 % (2.0-8.0); NEUTROPHILS % 84.3 % (40.0-76.0); PLATELET 163 x1000/uL (130-400); RED BLOOD CELL COUNT 3.01 mill/uL (4.2-5.4); RED CELL DISTRIBUTION WIDTH 19.7 % (11.6-14.6)
[2021-09-11 06:37] LABS: CHLORIDE 102 mEq/L (98-107)
[2021-09-11] MEDS: AMLODIPINE 5MG TABLET PO SCH (09:00)
[2021-09-11] MEDS: PREDNISONE 20MG TABLET PO SCH (10:02)
[2021-09-11] MEDS: PSYLLIUM SEED PACKET PO SCH ×3 (10:02→17:00)
[2021-09-11] MEDS: LACTULOSE 20G/30ML UDC PO SCH ×2 (10:02→18:05)
[2021-09-11] MEDS: DOCUSATE SODIUM 100MG CAPSULE PO SCH ×2 (10:03→18:05)
[2021-09-11] MEDS ORDERED: IPRATROPIUM/ALBUTEROL 0.5-3(2.5)MG/3ML NEB HHN PRN (16:15)
[2021-09-11] MEDS: APIXABAN 5 MG TABLET PO SCH (21:42)
[2021-09-11] MEDS: RISPERIDONE 1MG TABLET PO SCH (21:42)
[2021-09-12] VITALS (11 sets, daily range): BP systolic 102–149; BP diastolic 50–70
[2021-09-12] MEDS: HYDROCODONE/APAP 7.5/325MG 1 TAB TABLET PO PRN ×2 (03:27→09:57)
[2021-09-12 07:07] LABS: BASOPHILS % 0.1 % (0.0-2.0); EOSINOPHILS % 0.1 % (0.0-5.0); HEMATOCRIT. 25.9 % (36.0-48.0); HEMOGLOBIN. 8.7 g/dL (12.0-16.0); MEAN CORPUSCULAR VOLUME 95.2 fL (81.0-99.0); MONOCYTES % 5.2 % (2.0-8.0); NEUTROPHILS % 76.6 % (40.0-76.0); PLATELET 141 x1000/uL (130-400); RED BLOOD CELL COUNT 2.72 mill/uL (4.2-5.4); RED CELL DISTRIBUTION WIDTH 19.2 % (11.6-14.6)
[2021-09-12 07:31] LABS: CHLORIDE 105 mEq/L (98-107)
[2021-09-12] MEDS: PSYLLIUM SEED PACKET PO SCH ×3 (08:24→17:00)
[2021-09-12] MEDS: DOCUSATE SODIUM 100MG CAPSULE PO SCH ×2 (08:24→17:00)
[2021-09-12] MEDS: PREDNISONE 20MG TABLET PO SCH (08:24)
[2021-09-12] MEDS: APIXABAN 5 MG TABLET PO SCH ×2 (08:24→21:14)
[2021-09-12] MEDS: LACTULOSE 20G/30ML UDC PO SCH ×2 (08:24→17:00)
[2021-09-12] MEDS: AMLODIPINE 5MG TABLET PO SCH (08:25)
[2021-09-12] MEDS ORDERED: NA PHOS,M-B/NA PHOS,DI-BA ENEMA 118ML PR NR (15:00)
[2021-09-12] MEDS: RISPERIDONE 1MG TABLET PO SCH (21:14)
[2021-09-13] VITALS (12 sets, daily range): BP systolic 96–133; BP diastolic 50–81
[2021-09-13] MEDS: LORAZEPAM 0.5MG TABLET PO PRN ×2 (05:11→16:59)
[2021-09-13] MEDS: DOCUSATE SODIUM 100MG CAPSULE PO SCH ×2 (08:58→16:58)
[2021-09-13] MEDS: PREDNISONE 20MG TABLET PO SCH (08:59)
[2021-09-13] MEDS: LACTULOSE 20G/30ML UDC PO SCH ×2 (08:59→16:58)
[2021-09-13] MEDS ORDERED: AMLODIPINE 2.5MG TABLET PO SCH (09:00)
[2021-09-13] MEDS: PSYLLIUM SEED PACKET PO SCH (09:00)
[2021-09-13] MEDS: HYDROCODONE/APAP 7.5/325MG 1 TAB TABLET PO PRN (09:00)
[2021-09-13] MEDS: APIXABAN 5 MG TABLET PO SCH ×2 (09:01→21:03)
[2021-09-13 11:11] LABS: CHLORIDE 102 mEq/L (98-107)
[2021-09-13 11:17] LABS: TOTAL IRON BINDING CAPACITY 323 ug/dL (250-450)
[2021-09-13 11:26] LABS: BASOPHILS % 0.2 % (0.0-2.0); EOSINOPHILS % 0.3 % (0.0-5.0); HEMATOCRIT. 33.9 % (36.0-48.0); LYMPHOCYTES % 15.8 % (20.0-50.0); MEAN CORPUSCULAR HEMOGLOBIN 31.5 pg (28.0-32.0); MEAN CORPUSCULAR VOLUME 96.8 fL (81.0-99.0); MEAN PLATELET VOLUME 9.4 fl (7.4-10.4); MONOCYTES % 3.3 % (2.0-8.0); NEUTROPHILS % 80.4 % (40.0-76.0); PLATELET 178 x1000/uL (130-400); RED BLOOD CELL COUNT 3.51 mill/uL (4.2-5.4); RED CELL DISTRIBUTION WIDTH 20.1 % (11.6-14.6)
[2021-09-13 11:44] LABS: VITAMIN B12 SERUM 613 pg/mL (211-911)
[2021-09-13] MEDS ORDERED: NON FORMULARY PATIENT HOME MED XX SCH (13:00)
[2021-09-13] MEDS: [UNRECOGNIZED DRUG - OTHER] PO SCH ×2 (13:49→16:58)
[2021-09-13] MEDS: RISPERIDONE 1MG TABLET PO SCH (21:03)
[2021-09-14] VITALS (12 sets, daily range): BP systolic 109–144; BP diastolic 44–81
[2021-09-14] MEDS: LORAZEPAM 0.5MG TABLET PO PRN (06:31)
[2021-09-14] MEDS: [UNRECOGNIZED DRUG - OTHER] PO SCH ×3 (07:20→16:29)
[2021-09-14 07:36] LABS: MEAN CORPUSCULAR HEMOGLOBIN 32.3 pg (28.0-32.0); MEAN CORPUSCULAR VOLUME 96.6 fL (81.0-99.0); MEAN PLATELET VOLUME 9.2 fl (7.4-10.4); PLATELET 136 x1000/uL (130-400); RED BLOOD CELL COUNT 2.81 mill/uL (4.2-5.4); RED CELL DISTRIBUTION WIDTH 19.5 % (11.6-14.6)
[2021-09-14 07:55] LABS: CHLORIDE 106 mEq/L (98-107)
[2021-09-14 07:56] LABS: HEMATOCRIT. 27.1 % (36.0-48.0); HEMOGLOBIN. 9.1 g/dL (12.0-16.0)
[2021-09-14] MEDS: LACTULOSE 20G/30ML UDC PO SCH ×2 (08:43→16:29)
[2021-09-14] MEDS: DOCUSATE SODIUM 100MG CAPSULE PO SCH ×2 (08:43→16:29)
[2021-09-14] MEDS: APIXABAN 5 MG TABLET PO SCH (08:43)
[2021-09-14] MEDS: PREDNISONE 20MG TABLET PO SCH (08:43)
[2021-09-14 13:29] LABS: PLATELET ESTIMATE NORMAL
[2021-09-14] MEDS: RISPERIDONE 1MG TABLET PO SCH (21:08)
[2021-09-15] VITALS (10 sets, daily range): BP systolic 109–136; BP diastolic 62–88
[2021-09-15 05:31] LABS: BASOPHILS % 0.4 % (0.0-2.0); EOSINOPHILS % 0.5 % (0.0-5.0); HEMATOCRIT. 28.9 % (36.0-48.0); HEMOGLOBIN. 9.6 g/dL (12.0-16.0); LYMPHOCYTES % 16.7 % (20.0-50.0); MEAN CORPUSCULAR HEMOGLOBIN 32.6 pg (28.0-32.0); MEAN CORPUSCULAR VOLUME 97.8 fL (81.0-99.0); MONOCYTES % 4.5 % (2.0-8.0); NEUTROPHILS % 77.9 % (40.0-76.0); PLATELET 157 x1000/uL (130-400); RED BLOOD CELL COUNT 2.96 mill/uL (4.2-5.4); RED CELL DISTRIBUTION WIDTH 20.2 % (11.6-14.6)
[2021-09-15 05:33] LABS: CHLORIDE 105 mEq/L (98-107)
[2021-09-15 05:39] LABS: LDL CHOLESTEROL 99 mg/dL (5-100)
[2021-09-15 05:41] LABS: HDL CHOLESTEROL 52 mg/dL (40-59)
[2021-09-15] MEDS: PREDNISONE 20MG TABLET PO SCH (08:40)
[2021-09-15] MEDS: DOCUSATE SODIUM 100MG CAPSULE PO SCH (08:40)
[2021-09-15] MEDS: [UNRECOGNIZED DRUG - OTHER] PO SCH ×2 (08:40→13:11)
[2021-09-15] MEDS: LACTULOSE 20G/30ML UDC PO SCH (08:40)
[2021-09-15] MEDS ORDERED: ASPIRIN 81MG TABLET PO SCH (12:00)
[2021-09-15] MEDS ORDERED: APIX2.5T PO (12:37)
[2021-09-15] MEDS ORDERED: ASPI-1160 PO (12:37)
[2021-09-15] MEDS ORDERED: P20 PO (12:37)
[2021-09-15] MEDS ORDERED: APIXABAN 2.5 MG TABLET PO SCH (21:00)
[2021-09-17] MEDS ORDERED: APIXABAN 5 MG TABLET PO SCH (09:00)
== END 2021-09-15 16:00 | DRG 271 ==
LOC: 8WST 11:00 → 3WST 15:26
PROVIDERS: ADMIT Specialist; ATTEND Specialist
PROC: 04CD0ZZ Extirpation of Matter from Left Common Iliac Artery, Open Approach (ICD-10-PCS; principal; 2021-09-10)
PROC: 04CL0ZZ Extirpation of Matter from Left Femoral Artery, Open Approach (ICD-10-PCS; 2021-09-10)
PROC: 04CN0ZZ Extirpation of Matter from Left Popliteal Artery, Open Approach (ICD-10-PCS; 2021-09-10)
PROC: 04CJ0ZZ Extirpation of Matter from Left External Iliac Artery, Open Approach (ICD-10-PCS; 2021-09-10)
PROC: 04CF0ZZ Extirpation of Matter from Left Internal Iliac Artery, Open Approach (ICD-10-PCS; 2021-09-10)
PROC: 047D3ZZ Dilation of Left Common Iliac Artery, Percutaneous Approach (ICD-10-PCS; 2021-09-10)
PROC: 047J3ZZ Dilation of Left External Iliac Artery, Percutaneous Approach (ICD-10-PCS; 2021-09-10)
PROC: 047F3ZZ Dilation of Left Internal Iliac Artery, Percutaneous Approach (ICD-10-PCS; 2021-09-10)
PROC: 047L3ZZ Dilation of Left Femoral Artery, Percutaneous Approach (ICD-10-PCS; 2021-09-10)
DX: I70.222 Atherosclerosis of native arteries of extremities with rest pain, left leg (principal); I74.3 Embolism and thrombosis of arteries of the lower extremities; I42.2 Other hypertrophic cardiomyopathy; G93.40 Encephalopathy, unspecified; J84.9 Interstitial pulmonary disease, unspecified; G89.29 Other chronic pain; D64.9 Anemia, unspecified; I10 Essential (primary) hypertension; I70.203 Unspecified atherosclerosis of native arteries of extremities, bilateral legs; M54.16 Radiculopathy, lumbar region; K59.00 Constipation, unspecified; I77.1 Stricture of artery; R26.9 Unspecified abnormalities of gait and mobility; R09.89 Other specified symptoms and signs involving the circulatory and respiratory systems; J44.9 Chronic obstructive pulmonary disease, unspecified; Z86.16 Personal history of COVID-19; Z99.81 Dependence on supplemental oxygen; Z72.0 Tobacco use; Z82.49 Family history of ischemic heart disease and other diseases of the circulatory system; Z79.1 Long term (current) use of non-steroidal anti-inflammatories (NSAID); Z79.82 Long term (current) use of aspirin; Z79.899 Other long term (current) drug therapy; Z79.01 Long term (current) use of anticoagulants
CPT/HCPCS: 36415; 71045; 80048; 80061; 82270; 82607; 83540; 83550; 83735; 84484; 85025; 85027; 85044; 88304; 92523; 93005; 93306; 97110; 97162; 97167; 97530; 97535; A6261; C1757; C1884; J0690; J1644; J2250; J2270; J2440; J2704; J3010; J3490; J7042; J7512

== ENCOUNTER 2021-12-20 16:53 | Inpatient (IN) | payer MEDICARE, BC, OTHER ==
[~2021-12-20] VITALS: Ht 165.1 cm; Wt 97.5 kg
[~2021-12-20 16:53] MED LIST changes: -AMLO5TAB88 MT; +APIX2.5T PO; +ASPI-1160 PO; -ASPI-986 PO; -B25 MT; -CLON-457 MT; -HYDR-4133 MT; -IOHEXOL-350 100 ML BOTTLE ONE; -METH1POW MC; -MORP10SY6 MT; -ONDA4TAB11 PO; +P20 PO
[2021-12-20] MEDS ORDERED: ALBUTEROL (0.083%) 2.5MG/3ML NEB HHN STA (17:42)
[2021-12-20] MEDS ORDERED: IPRATROPIUM BROMIDE (0.02%) 0.5MG/2.5ML NEB HHN STA (17:42)
[2021-12-20 18:27] LABS: BASOPHILS % 0.5 % (0.0-2.0); HEMATOCRIT. 23.6 % (36.0-48.0); HEMOGLOBIN. 7.5 g/dL (12.0-16.0); LYMPHOCYTES % 15.1 % (20.0-50.0); MEAN CORPUSCULAR HEMOGLOBIN 28.1 pg (28.0-32.0); MEAN PLATELET VOLUME 9.1 fl (7.4-10.4); MONOCYTES % 10.4 % (2.0-8.0); PLATELET 173 x1000/uL (130-400); RED BLOOD CELL COUNT 2.68 mill/uL (4.2-5.4); RED CELL DISTRIBUTION WIDTH 17.8 % (11.6-14.6)
[2021-12-20 18:30] LABS: CHLORIDE 105 mEq/L (98-107)
[2021-12-20] MEDS ORDERED: LORAZEPAM 2MG/ML CPJ IM ONE (23:30)
[2021-12-21] MEDS ORDERED: HALOPERIDOL LACTATE 5MG/ML VIAL IM ONE (00:15)
[2021-12-21] MEDS ORDERED: AZITHROMYCIN 500MG/250ML 250 ML IV ONE (00:45)
[2021-12-21] MEDS ORDERED: CEFTRIAXONE 1 G PREMIX 50 ML IV ONE (00:45)
[2021-12-21] MEDS ORDERED: ASPIRIN 325MG EC TABLET PO ONE (01:15)
[2021-12-21] MEDS ORDERED: IOHEXOL-350 100 ML BOTTLE ONE (02:02)
[2021-12-21 08:54] LABS: CLARITY URINE CLEAR (CLEAR); COLOR URINE YELLOW (YELLOW); KETONES URINE NEGATIVE (NEGATIVE); LEUKOCYTE ESTERASE URINE NEGATIVE (NEGATIVE); NITRITE URINE NEGATIVE (NEGATIVE); OCCULT BLOOD URINE NEGATIVE (NEGATIVE); PROTEIN URINE NEGATIVE (NEGATIVE); SPECIFIC GRAVITY URINE 1.043 (1.005-1.030)
[2021-12-21] MEDS ORDERED: MAGNESIUM/ALUMINUM HYDROXIDE/SIMETHICONE 30ML UDC PO PRN (09:15)
[2021-12-21] MEDS ORDERED: CLONIDINE 0.1MG TABLET PO PRN (09:15)
[2021-12-21] MEDS ORDERED: ACETAMINOPHEN 325MG TABLET PO PRN ×2 (09:15)
[2021-12-21] MEDS ORDERED: ONDANSETRON HCL 4MG/2ML INJ IV PRN (09:15)
[2021-12-21] MEDS ORDERED: APIX5TAB PO (09:26)
[2021-12-21] MEDS ORDERED: APIXABAN 5 MG TABLET PO SCH (09:30)
[2021-12-21 13:35] VITALS: BP 114/63
[2021-12-21] MEDS ORDERED: NALOXONE HCL 0.4MG/ML VIAL IV PRN (14:45)
[2021-12-21] MEDS: HYDROCODONE/ACETAMINOPHEN 5/325MG TABLET PO PRN (14:59)
[2021-12-21] MEDS ORDERED: FERROUS SULFATE 325MG TABLET PO SCH (15:00)
[2021-12-21 15:56] VITALS: BP 122/50
[2021-12-21] MEDS: SENNOSIDES 8.6MG TABLET PO SCH (17:51)
[2021-12-21 20:15] VITALS: BP 115/55
[2021-12-21] MEDS: APIXABAN 2.5 MG TABLET PO SCH (20:27)
[2021-12-21 21:30] LABS: HEMATOCRIT 21.2 % (36.0-48.0); MEAN CORPUSCULAR HEMOGLOBIN 29.3 pg (28.0-32.0); MEAN CORPUSCULAR VOLUME 88.8 fL (81.0-99.0); PLATELET 154 x1000/uL (130-400); RED BLOOD CELL COUNT 2.38 mill/uL (4.2-5.4); RED CELL DISTRIBUTION WIDTH 17.8 % (11.6-14.6)
[2021-12-22] VITALS: BP 103/61
[2021-12-22 04:00] VITALS: BP 117/63
[2021-12-22] MEDS: HYDROCODONE/ACETAMINOPHEN 5/325MG TABLET PO PRN ×2 (06:09→11:06)
[2021-12-22 06:52] LABS: BASOPHILS % 0.6 % (0.0-2.0); EOSINOPHILS % 6.3 % (0.0-5.0); HEMATOCRIT. 21.5 % (36.0-48.0); HEMOGLOBIN. 7.2 g/dL (12.0-16.0); LYMPHOCYTES % 12.3 % (20.0-50.0); MEAN CORPUSCULAR HEMOGLOBIN 29.4 pg (28.0-32.0); MEAN CORPUSCULAR VOLUME 87.6 fL (81.0-99.0); MEAN PLATELET VOLUME 9.9 fl (7.4-10.4); MONOCYTES % 11.4 % (2.0-8.0); NEUTROPHILS % 69.4 % (40.0-76.0); PLATELET 165 x1000/uL (130-400); RED BLOOD CELL COUNT 2.46 mill/uL (4.2-5.4); RED CELL DISTRIBUTION WIDTH 17.2 % (11.6-14.6)
[2021-12-22 07:00] LABS: CHLORIDE 106 mEq/L (98-107)
[2021-12-22 07:05] LABS: PHOSPHORUS 3.6 mg/dL (2.5-4.9)
[2021-12-22] MEDS ORDERED: FERR-63 PO (07:58)
[2021-12-22 08:30] VITALS: BP 106/53
[2021-12-22] MEDS: SENNOSIDES 8.6MG TABLET PO SCH (09:56)
[2021-12-22] MEDS: APIXABAN 2.5 MG TABLET PO SCH (09:56)
[2021-12-22 11:24] VITALS: BP 106/53
[2021-12-22 12:00] VITALS: BP 114/60
== END 2021-12-22 16:06 | disposition home or self-care (01) | DRG 190 ==
LOC: ER 16:53 → MICUSO 12-21 02:19 → 6WST 12-21 13:57
PROVIDERS: ADMIT Internal Medicine; ATTEND Internal Medicine
DX: J44.1 Chronic obstructive pulmonary disease with (acute) exacerbation (principal); K66.1 Hemoperitoneum; J45.901 Unspecified asthma with (acute) exacerbation; J84.9 Interstitial pulmonary disease, unspecified; I42.2 Other hypertrophic cardiomyopathy; I74.5 Embolism and thrombosis of iliac artery; I74.3 Embolism and thrombosis of arteries of the lower extremities; D64.9 Anemia, unspecified; E78.5 Hyperlipidemia, unspecified; I10 Essential (primary) hypertension; E78.00 Pure hypercholesterolemia, unspecified; I70.8 Atherosclerosis of other arteries; I73.9 Peripheral vascular disease, unspecified; Z20.822 Contact with and (suspected) exposure to COVID-19; U09.9 Post COVID-19 condition, unspecified; R79.89 Other specified abnormal findings of blood chemistry; I70.0 Atherosclerosis of aorta; Z79.01 Long term (current) use of anticoagulants; Z79.899 Other long term (current) drug therapy; Z79.1 Long term (current) use of non-steroidal anti-inflammatories (NSAID); Z87.891 Personal history of nicotine dependence; Z79.82 Long term (current) use of aspirin; Z99.81 Dependence on supplemental oxygen
CPT/HCPCS: 36415; 71045; 71275; 74177; 80048; 80053; 81003; 83735; 83880; 84100; 84484; 85025; 85027; 85379; 86850; 86900; 86920; 87426; 93005; 93970; 99285; J0456; J0696; J1630; J2060; Q9967

== ENCOUNTER → 2022-02-18 | Outpatient (CLI) | payer MEDICARE, BC, OTHER ==
[~2022-02-18] MED LIST changes: -ERGO80009; +FERR-63 PO; -LACT330L PO; -P20 PO; -POLY1POW3 MC; -ZINC10OI TP
== END | disposition home or self-care (01) ==
LOC: PF 11:29
PROVIDERS: ATTEND Internal Medicine
DX: J96.11 Chronic respiratory failure with hypoxia (principal); J98.4 Other disorders of lung; Z20.822 Contact with and (suspected) exposure to COVID-19
CPT/HCPCS: 87426; 94010; 94727; 94729

== ENCOUNTER 2022-12-01 16:33 | Inpatient (IN) | payer MEDICARE, BC, OTHER ==
[~2022-12-01] VITALS: Ht 165.1 cm; Wt 110.7 kg
[2022-12-01] MEDS ORDERED: ACETAMINOPHEN 325MG TABLET PO ONE (18:15)
[2022-12-01 18:58] LABS: BG BASE EXCESS 4.8 mmol/L (-2.0-2.0); BG CARBOXYHEMOGLOBIN 0.1 % (0.5-1.5); BG DEOXYHEMOGLOBIN 10.3 % (0.0-5.0); BG FRACTION INSPIRED OXYGEN 32; BG HCO3 ACT 26.9 mmol/L (22.0-26.0); BG METHEMOGLOBIN 0.2 % (0.0-1.5); BG OXYGEN SATURATION 89.7 % (92.0-98.5); BG OXYHEMOGLOBIN 89.4 % (94.0-97.0); BG PH 7.543 (7.350-7.450); BG SAMPLE SITE RIGHT BRACHIAL; BG TOTAL HEMOGLOBIN 12.7 g/dL (12.0-18.0); BG VENT MODE NASAL CANNULA
[2022-12-01 19:25] LABS: BASOPHILS % 0.6 % (0.0-2.0); EOSINOPHILS % 0.1 % (0.0-5.0); HEMATOCRIT. 30.3 % (36.0-48.0); HEMOGLOBIN. 10.3 g/dL (12.0-16.0); MEAN CORPUSCULAR HEMOGLOBIN 30.4 pg (28.0-32.0); MEAN CORPUSCULAR VOLUME 89.1 fL (81.0-99.0); MEAN PLATELET VOLUME 9.5 fl (7.4-10.4); MONOCYTES % 6.8 % (2.0-8.0); NEUTROPHILS % 80.5 % (40.0-76.0); PLATELET 170 x1000/uL (130-400); RED CELL DISTRIBUTION WIDTH 15.2 % (11.6-14.6)
[2022-12-01 19:33] LABS: CHLORIDE 100 mEq/L (98-107)
[2022-12-01] MEDS ORDERED: AZITHROMYCIN 500MG/250ML 250 ML IV ONE (20:30)
[2022-12-01] MEDS ORDERED: CEFTRIAXONE 1 G PREMIX 50 ML IV ONE (20:30)
[2022-12-01] MEDS ORDERED: AZITHROMYCIN 500MG/250ML 250 ML IV NR (23:30)
[2022-12-01] MEDS ORDERED: CEFTRIAXONE 1 G PREMIX 50 ML IV NR (23:30)
[2022-12-02] VITALS (7 sets, daily range): BP systolic 118–148; BP diastolic 58–76
[2022-12-02] MEDS ORDERED: IPRATROPIUM/ALBUTEROL 0.5-3(2.5)MG/3ML NEB HHN PRN (08:15)
[2022-12-02 10:29] LABS: BG BASE EXCESS 5.1 mmol/L (-2.0-2.0); BG CARBOXYHEMOGLOBIN 0.3 % (0.5-1.5); BG DEOXYHEMOGLOBIN 0.4 % (0.0-5.0); BG FRACTION INSPIRED OXYGEN 100; BG HCO3 ACT 28.2 mmol/L (22.0-26.0); BG METHEMOGLOBIN 0.3 % (0.0-1.5); BG OXYGEN SATURATION 99.6 % (92.0-98.5); BG PCO2 35.8 mmHg (35.0-45.0); BG PH 7.514 (7.350-7.450); BG PO2 365.7 mmHg (75.0-100.0); BG SAMPLE SITE RIGHT RADIAL; BG TOTAL HEMOGLOBIN 11.2 g/dL (12.0-18.0); BG VENT MODE MASK - NRB
[2022-12-02] MEDS ORDERED: LOSA50TA41 PO (11:27)
[2022-12-02] MEDS ORDERED: AMLO10TA80 MT (11:27)
[2022-12-02] MEDS ORDERED: FURO20TA4 MT (11:27)
[2022-12-02] MEDS ORDERED: CLOP75TA33 MT (11:27)
[2022-12-02] MEDS ORDERED: ATOR20TA65 MT (11:27)
[2022-12-02] MEDS ORDERED: GUAIFENESIN 200MG/10ML SUGAR FREE UDC PO PRN (11:30)
[2022-12-02] MEDS ORDERED: CLONIDINE 0.1MG TABLET PO PRN (11:30)
[2022-12-02] MEDS ORDERED: IPRATROPIUM/ALBUTEROL 0.5-3(2.5)MG/3ML NEB HHN SCH (11:30)
[2022-12-02] MEDS ORDERED: TRAMADOL 50MG TABLET PO PRN (11:30)
[2022-12-02] MEDS ORDERED: ENOXAPARIN 40MG/0.4ML SYR SUBCUT SCH (11:30)
[2022-12-02] MEDS ORDERED: CEFTRIAXONE 1 G PREMIX 50 ML IV SCH ×2 (11:30→23:00)
[2022-12-02] MEDS ORDERED: MAGNESIUM/ALUMINUM HYDROXIDE/SIMETHICONE 30ML UDC PO PRN (11:30)
[2022-12-02] MEDS ORDERED: ONDANSETRON HCL 4MG/2ML INJ IV PRN (11:30)
[2022-12-02] MEDS ORDERED: AZITHROMYCIN 500 MG in DEXT 5% WATER 250 ML IV SCH (11:30)
[2022-12-02] MEDS ORDERED: NALOXONE HCL 0.4MG/ML VIAL IV PRN (11:45)
[2022-12-02] MEDS: ATORVASTATIN CALCIUM 20MG TABLET PO SCH (12:36)
[2022-12-02] MEDS: LOSARTAN POTASSIUM 50 MG TABLET PO SCH ×2 (12:36→22:13)
[2022-12-02] MEDS: METHYLPREDNISOLONE SOD SUCC 40 MG/ML VIAL IV SCH ×2 (12:36→23:42)
[2022-12-02] MEDS: CLOPIDOGREL 75MG TABLET PO SCH (12:37)
[2022-12-02] MEDS: AMLODIPINE 10MG TABLET PO SCH (12:37)
[2022-12-02] MEDS: ACETAMINOPHEN 325MG TABLET PO PRN (12:37)
[2022-12-02 15:45] LABS: HEMATOCRIT. 27.4 % (36.0-48.0); HEMOGLOBIN. 9.5 g/dL (12.0-16.0); MEAN CORPUSCULAR HEMOGLOBIN 30.9 pg (28.0-32.0); MEAN CORPUSCULAR VOLUME 89.3 fL (81.0-99.0); RED BLOOD CELL COUNT 3.07 mill/uL (4.2-5.4); RED CELL DISTRIBUTION WIDTH 15.4 % (11.6-14.6)
[2022-12-02 15:46] LABS: BASOPHILS % 0.8 % (0.0-2.0); EOSINOPHILS % 0.2 % (0.0-5.0); LYMPHOCYTES % 10.9 % (20.0-50.0); MEAN PLATELET VOLUME 9.6 fl (7.4-10.4); MONOCYTES % 10.5 % (2.0-8.0); NEUTROPHILS % 77.6 % (40.0-76.0); PLATELET 176 x1000/uL (130-400)
[2022-12-02 16:14] LABS: CHLORIDE 101 mEq/L (98-107)
[2022-12-02] MEDS ORDERED: LACTULOSE ENEMA 1,000ML BOTTLE PR SCH (17:00)
[2022-12-02] MEDS: DOCUSATE SODIUM 100MG CAPSULE PO PRN (18:07)
[2022-12-02] MEDS: IPRATROPIUM/ALBUTEROL 0.5-3(2.5)MG/3ML NEB HHN SCH (20:12)
[2022-12-02] MEDS: APIXABAN 2.5 MG TABLET PO SCH (22:13)
[2022-12-02] MEDS: RISPERIDONE 1MG TABLET PO SCH (22:13)
[2022-12-02] MEDS: AZITHROMYCIN 500 MG in DEXT 5% WATER 250 ML IV SCH (22:14)
[2022-12-02] MEDS: CEFTRIAXONE 1,000 MG in DEXTROSE 5% WATER 50 ML IV SCH (23:43)
[2022-12-03] VITALS (12 sets, daily range): BP systolic 95–128; BP diastolic 41–76
[2022-12-03] MEDS: IPRATROPIUM/ALBUTEROL 0.5-3(2.5)MG/3ML NEB HHN SCH ×2 (02:23→07:53)
[2022-12-03 07:05] LABS: CHLORIDE 100 mEq/L (98-107)
[2022-12-03 07:07] LABS: BASOPHILS % 0.4 % (0.0-2.0); HEMOGLOBIN. 10.2 g/dL (12.0-16.0); LYMPHOCYTES % 7.8 % (20.0-50.0); MEAN CORPUSCULAR HEMOGLOBIN 30.4 pg (28.0-32.0); MEAN CORPUSCULAR VOLUME 89.1 fL (81.0-99.0); MEAN PLATELET VOLUME 9.3 fl (7.4-10.4); MONOCYTES % 3.7 % (2.0-8.0); NEUTROPHILS % 88.1 % (40.0-76.0); PLATELET 184 x1000/uL (130-400); RED BLOOD CELL COUNT 3.37 mill/uL (4.2-5.4); RED CELL DISTRIBUTION WIDTH 15.3 % (11.6-14.6)
[2022-12-03 07:17] LABS: HDL CHOLESTEROL 29 mg/dL (40-59); LDL CHOLESTEROL 79 mg/dL (5-100)
[2022-12-03] MEDS: AMLODIPINE 10MG TABLET PO SCH (08:31)
[2022-12-03] MEDS: ASPIRIN 81MG TABLET PO SCH (08:31)
[2022-12-03] MEDS: FERROUS SULFATE 325MG TABLET PO SCH (08:31)
[2022-12-03] MEDS: LOSARTAN POTASSIUM 50 MG TABLET PO SCH ×2 (08:31→21:24)
[2022-12-03] MEDS: ATORVASTATIN CALCIUM 20MG TABLET PO SCH (08:31)
[2022-12-03] MEDS: CLOPIDOGREL 75MG TABLET PO SCH (08:31)
[2022-12-03] MEDS: ACETAMINOPHEN 325MG TABLET PO PRN (08:31)
[2022-12-03] MEDS: METHYLPREDNISOLONE SOD SUCC 40 MG/ML VIAL IV SCH ×2 (08:32→21:24)
[2022-12-03] MEDS: APIXABAN 2.5 MG TABLET PO SCH ×2 (08:32→21:24)
[2022-12-03] MEDS: FUROSEMIDE 20MG TABLET PO SCH (08:34)
[2022-12-03] MEDS: DOCUSATE SODIUM 100MG CAPSULE PO PRN (09:12)
[2022-12-03] MEDS ORDERED: LACTULOSE 20G/30ML UDC PO SCH (09:15)
[2022-12-03] MEDS ORDERED: POTASSIUM CHLORIDE 20MEQ TABLET SR PO NR (11:00)
[2022-12-03] MEDS: SERTRALINE HCL 25MG TABLET PO SCH (11:14)
[2022-12-03] MEDS: GUAIFENESIN 600MG ER TABLET PO SCH ×2 (11:14→21:24)
[2022-12-03 11:16] LABS: BG CARBOXYHEMOGLOBIN 0.3 % (0.5-1.5); BG DEOXYHEMOGLOBIN 4.2 % (0.0-5.0); BG FRACTION INSPIRED OXYGEN 32; BG HCO3 ACT 25.7 mmol/L (22.0-26.0); BG METHEMOGLOBIN 0.3 % (0.0-1.5); BG OXYGEN SATURATION 95.8 % (92.0-98.5); BG OXYHEMOGLOBIN 95.2 % (94.0-97.0); BG PCO2 36.8 mmHg (35.0-45.0); BG PH 7.462 (7.350-7.450); BG PO2 75.8 mmHg (75.0-100.0); BG SAMPLE SITE RIGHT RADIAL; BG TOTAL HEMOGLOBIN 11.2 g/dL (12.0-18.0); BG VENT MODE NASAL CANNULA
[2022-12-03] MEDS ORDERED: ALBUTEROL (0.083%) 2.5MG/3ML NEB HHN PRN (13:30)
[2022-12-03] MEDS ORDERED: IPRATROPIUM BROMIDE (0.02%) 0.5MG/2.5ML NEB HHN PRN (13:30)
[2022-12-03] MEDS: POLYVINYL ALCOHOL OPHTH DROPS 15ML BOTHEYE SCH ×3 (14:04→23:27)
[2022-12-03] MEDS ORDERED: LACTULOSE 20G/30ML UDC PO PRN (16:00)
[2022-12-03] MEDS: ALBUTEROL (0.083%) 2.5MG/3ML NEB HHN SCH (21:22)
[2022-12-03] MEDS: IPRATROPIUM BROMIDE (0.02%) 0.5MG/2.5ML NEB HHN SCH (21:22)
[2022-12-03] MEDS: RISPERIDONE 1MG TABLET PO SCH (21:24)
[2022-12-03] MEDS: AZITHROMYCIN 500 MG in DEXT 5% WATER 250 ML IV SCH (21:25)
[2022-12-03] MEDS: CEFTRIAXONE 1,000 MG in DEXTROSE 5% WATER 50 ML IV SCH (23:26)
[2022-12-04] VITALS (12 sets, daily range): BP systolic 105–160; BP diastolic 40–80
[2022-12-04] MEDS: IPRATROPIUM BROMIDE (0.02%) 0.5MG/2.5ML NEB HHN SCH ×4 (02:52→20:31)
[2022-12-04] MEDS: ALBUTEROL (0.083%) 2.5MG/3ML NEB HHN SCH ×4 (02:53→20:31)
[2022-12-04] MEDS: POLYVINYL ALCOHOL OPHTH DROPS 15ML BOTHEYE SCH ×4 (05:27→23:22)
[2022-12-04 06:24] LABS: CHLORIDE 104 mEq/L (98-107)
[2022-12-04 06:32] LABS: HEMOGLOBIN. 10.3 g/dL (12.0-16.0); MEAN CORPUSCULAR HEMOGLOBIN 30.6 pg (28.0-32.0); MEAN CORPUSCULAR VOLUME 89.4 fL (81.0-99.0); MEAN PLATELET VOLUME 9.6 fl (7.4-10.4); PLATELET 250 x1000/uL (130-400); RED BLOOD CELL COUNT 3.35 mill/uL (4.2-5.4)
[2022-12-04] MEDS ORDERED: LIDOCAINE HCL 1% 10 MG/ML 10ML VIAL ONE (07:59)
[2022-12-04] MEDS ORDERED: IOHEXOL-350 100 ML BOTTLE ONE (09:21)
[2022-12-04] MEDS: GUAIFENESIN 600MG ER TABLET PO SCH ×2 (09:38→20:26)
[2022-12-04] MEDS: CLOPIDOGREL 75MG TABLET PO SCH (09:38)
[2022-12-04] MEDS: LOSARTAN POTASSIUM 50 MG TABLET PO SCH ×2 (09:38→20:26)
[2022-12-04] MEDS: ASPIRIN 81MG TABLET PO SCH (09:38)
[2022-12-04] MEDS: APIXABAN 2.5 MG TABLET PO SCH ×2 (09:39→20:26)
[2022-12-04] MEDS: ATORVASTATIN CALCIUM 20MG TABLET PO SCH (09:43)
[2022-12-04] MEDS: SERTRALINE HCL 25MG TABLET PO SCH (09:43)
[2022-12-04] MEDS: AMLODIPINE 10MG TABLET PO SCH (09:43)
[2022-12-04] MEDS: FUROSEMIDE 20MG TABLET PO SCH (09:43)
[2022-12-04] MEDS: METHYLPREDNISOLONE SOD SUCC 40 MG/ML VIAL IV SCH ×2 (09:43→20:27)
[2022-12-04 16:25] LABS: PLATELET ESTIMATE NORMAL
[2022-12-04] MEDS: RISPERIDONE 1MG TABLET PO SCH (20:26)
[2022-12-04] MEDS: AZITHROMYCIN 500 MG TABLET PO SCH (20:26)
[2022-12-04] MEDS: CEFTRIAXONE 1,000 MG in DEXTROSE 5% WATER 50 ML IV SCH (22:19)
[2022-12-05] VITALS (10 sets, daily range): BP systolic 125–168; BP diastolic 65–97
[2022-12-05] MEDS: IPRATROPIUM BROMIDE (0.02%) 0.5MG/2.5ML NEB HHN SCH ×4 (02:10→20:39)
[2022-12-05] MEDS: ALBUTEROL (0.083%) 2.5MG/3ML NEB HHN SCH ×4 (02:10→20:40)
[2022-12-05] MEDS: POLYVINYL ALCOHOL OPHTH DROPS 15ML BOTHEYE SCH ×3 (05:07→18:00)
[2022-12-05] MEDS: CLOPIDOGREL 75MG TABLET PO SCH (08:26)
[2022-12-05] MEDS: APIXABAN 2.5 MG TABLET PO SCH ×2 (08:26→21:35)
[2022-12-05] MEDS: ASPIRIN 81MG TABLET PO SCH (08:27)
[2022-12-05] MEDS: FUROSEMIDE 20MG TABLET PO SCH (08:27)
[2022-12-05] MEDS: AMLODIPINE 10MG TABLET PO SCH (08:27)
[2022-12-05] MEDS: SERTRALINE HCL 25MG TABLET PO SCH (08:27)
[2022-12-05] MEDS: LOSARTAN POTASSIUM 50 MG TABLET PO SCH ×2 (08:27→20:43)
[2022-12-05] MEDS: METHYLPREDNISOLONE SOD SUCC 40 MG/ML VIAL IV SCH ×2 (08:28→20:43)
[2022-12-05] MEDS: ATORVASTATIN CALCIUM 20MG TABLET PO SCH (08:28)
[2022-12-05] MEDS: FERROUS SULFATE 325MG TABLET PO SCH (08:28)
[2022-12-05] MEDS: GUAIFENESIN 600MG ER TABLET PO SCH ×2 (08:28→20:43)
[2022-12-05] MEDS: DOCUSATE SODIUM 100MG CAPSULE PO PRN (08:43)
[2022-12-05] MEDS: AZITHROMYCIN 500 MG TABLET PO SCH (20:43)
[2022-12-05] MEDS: RISPERIDONE 1MG TABLET PO SCH (20:43)
== END 2022-12-05 22:35 | DRG 193 ==
LOC: ER 16:33 → MICUSO 20:27 → EDBEDREQTM 20:40 → EDBEDREQSVC 20:40 → EDBEDREQ 20:40 → 5EST 12-02 11:47
PROVIDERS: ADMIT Internal Medicine Critical Care Medicine; ATTEND Internal Medicine
PROC: 05HY33Z Insertion of Infusion Device into Upper Vein, Percutaneous Approach (ICD-10-PCS; principal; 2022-12-04)
PROC: B54MZZA Ultrasonography of Right Upper Extremity Veins, Guidance (ICD-10-PCS; 2022-12-04)
PROC: B51M1ZA Fluoroscopy of Right Upper Extremity Veins using Low Osmolar Contrast, Guidance (ICD-10-PCS; 2022-12-04)
DX: J18.9 Pneumonia, unspecified organism (principal); J96.01 Acute respiratory failure with hypoxia; D68.59 Other primary thrombophilia; I42.9 Cardiomyopathy, unspecified; E44.1 Mild protein-calorie malnutrition; Z68.41 Body mass index [BMI] 40.0-44.9, adult; Z20.822 Contact with and (suspected) exposure to COVID-19; I16.0 Hypertensive urgency; E78.00 Pure hypercholesterolemia, unspecified; I10 Essential (primary) hypertension; Z79.01 Long term (current) use of anticoagulants; Z86.16 Personal history of COVID-19; Z87.01 Personal history of pneumonia (recurrent); Z87.891 Personal history of nicotine dependence; Z86.718 Personal history of other venous thrombosis and embolism
CPT/HCPCS: 36415; 36573; 36600; 71045; 71275; 80048; 80053; 80061; 82375; 82805; 83605; 83880; 84145; 84484; 85025; 85379; 87426; 87804; 93005; 93306; 93970; 94640; 97162; 97166; 97530; 99291; C1725; C9803; J0456; J0696; J2920; J3490; J7060; Q9967

== ENCOUNTER 2022-12-05 22:35 | Inpatient (IN) | payer MEDICARE, BC, OTHER ==
[~2022-12-05] VITALS: Ht 165.1 cm; Wt 107.0 kg
[2022-12-05 20:00] VITALS: BP 125/77
[~2022-12-05 22:35] MED LIST changes: +AMLO10TA80 MT; +ATOR20TA65 MT; +CLOP75TA33 MT; +FURO20TA4 MT; +LOSA50TA41 PO
[2022-12-05 23:00] VITALS: BP 125/77
[2022-12-05] MEDS ORDERED: IPRATROPIUM BROMIDE (0.02%) 0.5MG/2.5ML NEB HHN SCH (23:15)
[2022-12-05] MEDS ORDERED: CEFTRIAXONE 1 G PREMIX 50 ML IV SCH (23:15)
[2022-12-05] MEDS: RISPERIDONE 1MG TABLET PO SCH (23:40)
[2022-12-05] MEDS ORDERED: IPRATROPIUM BROMIDE (0.02%) 0.5MG/2.5ML NEB HHN PRN (23:45)
[2022-12-05] MEDS ORDERED: ACETAMINOPHEN 325MG TABLET PO PRN (23:45)
[2022-12-05] MEDS ORDERED: LACTULOSE 20G/30ML UDC PO PRN (23:45)
[2022-12-05] MEDS ORDERED: GUAIFENESIN 200MG/10ML SUGAR FREE UDC PO PRN (23:45)
[2022-12-05] MEDS ORDERED: ONDANSETRON HCL 4MG/2ML INJ IV PRN (23:45)
[2022-12-05] MEDS ORDERED: CLONIDINE 0.1MG TABLET PO PRN (23:45)
[2022-12-05] MEDS ORDERED: NALOXONE HCL 0.4 MG/ML 1ML VIAL IV PRN (23:45)
[2022-12-05] MEDS ORDERED: MAGNESIUM/ALUMINUM HYDROXIDE/SIMETHICONE 30ML UDC PO PRN (23:45)
[2022-12-05] MEDS ORDERED: ALBUTEROL (0.083%) 2.5MG/3ML NEB HHN PRN (23:45)
[2022-12-05] MEDS ORDERED: DOCUSATE SODIUM 100MG CAPSULE PO PRN (23:45)
[2022-12-05] MEDS ORDERED: TRAMADOL 50MG TABLET PO PRN (23:45)
[2022-12-06] MEDS ORDERED: CEFTRIAXONE 1,000 MG in DEXTROSE 5% WATER 50 ML IV SCH ×2
[2022-12-06] MEDS ORDERED: IPRATROPIUM/ALBUTEROL 0.5-3(2.5)MG/3ML NEB HHN SCH
[2022-12-06] MEDS: POLYVINYL ALCOHOL OPHTH DROPS 15ML BOTHEYE SCH ×4 (06:19→18:56)
[2022-12-06] MEDS: ALBUTEROL (0.083%) 2.5MG/3ML NEB HHN SCH ×3 (07:50→20:22)
[2022-12-06] MEDS: IPRATROPIUM BROMIDE (0.02%) 0.5MG/2.5ML NEB HHN SCH ×3 (07:50→20:22)
[2022-12-06 08:00] VITALS: BP 149/79
[2022-12-06 08:00] LABS: HEMOGLOBIN. 10.4 g/dL (12.0-16.0); MEAN CORPUSCULAR HEMOGLOBIN 30.3 pg (28.0-32.0); MEAN CORPUSCULAR VOLUME 89.8 fL (81.0-99.0); MEAN PLATELET VOLUME 9.4 fl (7.4-10.4); PLATELET 331 x1000/uL (130-400); RED BLOOD CELL COUNT 3.45 mill/uL (4.2-5.4); RED CELL DISTRIBUTION WIDTH 16.2 % (11.6-14.6)
[2022-12-06 08:26] LABS: CHLORIDE 100 mEq/L (98-107)
[2022-12-06] MEDS ORDERED: METHYLPREDNISOLONE SOD SUCC 40 MG/ML VIAL IV SCH (09:00)
[2022-12-06] MEDS: GUAIFENESIN 600MG ER TABLET PO SCH ×2 (11:32→20:34)
[2022-12-06] MEDS: APIXABAN 2.5 MG TABLET PO SCH ×2 (11:32→20:34)
[2022-12-06] MEDS: SERTRALINE HCL 25MG TABLET PO SCH (11:33)
[2022-12-06] MEDS: AMLODIPINE 10MG TABLET PO SCH (11:33)
[2022-12-06] MEDS: LOSARTAN POTASSIUM 50 MG TABLET PO SCH (11:34)
[2022-12-06] MEDS: ASPIRIN 81MG TABLET PO SCH (11:34)
[2022-12-06] MEDS: AZITHROMYCIN 500 MG TABLET PO SCH (11:34)
[2022-12-06] MEDS: FUROSEMIDE 20MG TABLET PO SCH (11:34)
[2022-12-06] MEDS: CLOPIDOGREL 75MG TABLET PO SCH (11:34)
[2022-12-06 20:00] VITALS: BP 134/57
[2022-12-06] MEDS: RISPERIDONE 1MG TABLET PO SCH (20:34)
[2022-12-06] MEDS ORDERED: ATORVASTATIN CALCIUM 20MG TABLET PO SCH (21:00)
[2022-12-07] MEDS: IPRATROPIUM BROMIDE (0.02%) 0.5MG/2.5ML NEB HHN SCH ×2 (01:53→07:41)
[2022-12-07] MEDS: ALBUTEROL (0.083%) 2.5MG/3ML NEB HHN SCH ×2 (01:54→07:33)
[2022-12-07] MEDS: POLYVINYL ALCOHOL OPHTH DROPS 15ML BOTHEYE SCH ×3 (06:41→11:45)
[2022-12-07 08:00] VITALS: BP 141/62
[2022-12-07] MEDS: FUROSEMIDE 20MG TABLET PO SCH (08:44)
[2022-12-07] MEDS: APIXABAN 2.5 MG TABLET PO SCH (08:44)
[2022-12-07] MEDS: SERTRALINE HCL 25MG TABLET PO SCH (08:45)
[2022-12-07] MEDS: CLOPIDOGREL 75MG TABLET PO SCH (08:45)
[2022-12-07] MEDS: AMLODIPINE 10MG TABLET PO SCH (08:45)
[2022-12-07] MEDS: ASPIRIN 81MG TABLET PO SCH (08:45)
[2022-12-07] MEDS: LOSARTAN POTASSIUM 50 MG TABLET PO SCH (08:45)
[2022-12-07] MEDS: GUAIFENESIN 600MG ER TABLET PO SCH (08:45)
[2022-12-07] MEDS: AZITHROMYCIN 500 MG TABLET PO SCH (08:49)
[2022-12-07] MEDS ORDERED: PREDNISONE 20MG TABLET PO SCH ×2 (09:00→17:00)
[2022-12-07 13:25] VITALS: BP 127/62
[2022-12-07 13:26] VITALS: BP 127/62
[2022-12-07 14:29] VITALS: BP 123/60
[2022-12-07 15:24] LABS: BG BASE EXCESS 6.2 mmol/L (-2.0-2.0); BG CARBOXYHEMOGLOBIN 0.6 % (0.5-1.5); BG DEOXYHEMOGLOBIN 6.5 % (0.0-5.0); BG FRACTION INSPIRED OXYGEN 28; BG HCO3 ACT 30.9 mmol/L (22.0-26.0); BG METHEMOGLOBIN 0.2 % (0.0-1.5); BG OXYGEN SATURATION 93.4 % (92.0-98.5); BG OXYHEMOGLOBIN 92.7 % (94.0-97.0); BG PCO2 44.8 mmHg (35.0-45.0); BG PH 7.456 (7.350-7.450); BG PO2 67.9 mmHg (75.0-100.0); BG SAMPLE SITE RIGHT RADIAL; BG TOTAL HEMOGLOBIN 11.5 g/dL (12.0-18.0); BG VENT MODE NASAL CANNULA
[2022-12-07 16:19] VITALS: BP 127/69
[2022-12-07 19:40] LABS: PLATELET ESTIMATE NORMAL
[2022-12-07] MEDS ORDERED: INSULIN GLARGINE 100 UNITS/ML SUBCUT SCH (22:00)
[2022-12-08] MEDS ORDERED: FERROUS SULFATE 325MG TABLET PO SCH (09:00)
== END 2022-12-07 16:48 | disposition short-term general hospital (02) | DRG 189 ==
PROVIDERS: ADMIT Psychiatry & Neurology Neurology; ATTEND Internal Medicine
DX: J96.01 Acute respiratory failure with hypoxia (principal); J18.9 Pneumonia, unspecified organism; J84.9 Interstitial pulmonary disease, unspecified; I42.2 Other hypertrophic cardiomyopathy; E44.1 Mild protein-calorie malnutrition; I50.9 Heart failure, unspecified; I11.0 Hypertensive heart disease with heart failure; E78.5 Hyperlipidemia, unspecified; R73.9 Hyperglycemia, unspecified; E66.9 Obesity, unspecified; R53.83 Other fatigue; D64.9 Anemia, unspecified; Z86.718 Personal history of other venous thrombosis and embolism; Z86.16 Personal history of COVID-19; Z87.01 Personal history of pneumonia (recurrent); Z87.891 Personal history of nicotine dependence; Z91.81 History of falling; Z99.81 Dependence on supplemental oxygen; Z68.39 Body mass index [BMI] 39.0-39.9, adult
CPT/HCPCS: 36415; 36600; 80053; 82375; 82805; 82962; 85025; 93005; 93970; 94640; 94660; 97110; 97162; 97166; 97530; 97535; J0696; J7060; J7512

== ENCOUNTER 2022-12-07 17:49 | Inpatient (IN) | payer MEDICARE, BC, OTHER ==
[~2022-12-07] VITALS: Ht 165.1 cm; Wt 107.0 kg
[2022-12-07 17:00] VITALS: BP 144/75
[2022-12-07 17:20] VITALS: BP 144/75
[2022-12-07 20:00] VITALS: BP 126/66
[2022-12-07] MEDS ORDERED: ENOXAPARIN 40MG/0.4ML SYR SUBCUT SCH (20:45)
[2022-12-07 21:21] LABS: BG BASE EXCESS 4.8 mmol/L (-2.0-2.0); BG CARBOXYHEMOGLOBIN 0.5 % (0.5-1.5); BG DEOXYHEMOGLOBIN 8.9 % (0.0-5.0); BG HCO3 ACT 29.4 mmol/L (22.0-26.0); BG METHEMOGLOBIN 0.1 % (0.0-1.5); BG OXYHEMOGLOBIN 90.5 % (94.0-97.0); BG PCO2 43.9 mmHg (35.0-45.0); BG PH 7.444 (7.350-7.450); BG PO2 61.6 mmHg (75.0-100.0); BG SAMPLE SITE LEFT RADIAL; BG TOTAL HEMOGLOBIN 11.5 g/dL (12.0-18.0); BG VENT MODE ROOM AIR
[2022-12-07] MEDS ORDERED: ONDANSETRON HCL 4MG/2ML INJ IV PRN (22:00)
[2022-12-07] MEDS ORDERED: IPRATROPIUM/ALBUTEROL 0.5-3(2.5)MG/3ML NEB HHN SCH (22:00)
[2022-12-07] MEDS ORDERED: ACETAMINOPHEN 325MG TABLET PO PRN (22:00)
[2022-12-07] MEDS ORDERED: CLONIDINE 0.1MG TABLET PO PRN (22:00)
[2022-12-07] MEDS: ENOXAPARIN 30MG/0.3ML SYR SUBCUT SCH (22:57)
[2022-12-07] MEDS: INSULIN GLARGINE 100 UNITS/ML SUBCUT SCH (22:58)
[2022-12-07] MEDS: SODIUM CHLORIDE 0.9% 1,000 ML IV SCH (23:12)
[2022-12-08] VITALS: BP 126/53
[2022-12-08 00:40] LABS: CREATINE KINASE MB FRACTION 1.3 ng/mL (0.5-3.6)
[2022-12-08] MEDS ORDERED: DEXTROSE 50% WATER 50ML SYRINGE IV PRN (03:00)
[2022-12-08 04:00] VITALS: BP 152/68
[2022-12-08 06:45] LABS: CHLORIDE 103 mEq/L (98-107)
[2022-12-08 06:57] LABS: CREATINE KINASE MB FRACTION 1.4 ng/mL (0.5-3.6)
[2022-12-08] MEDS: BLOOD SUGAR DIAGNOSTIC STRIP TEST SCH ×4 (07:14→21:30)
[2022-12-08] MEDS: INSULIN LISPRO 100 UNITS/ML SUBCUT SCH ×4 (07:19→21:49)
[2022-12-08 08:00] VITALS: BP 104/50
[2022-12-08 08:17] LABS: MEAN CORPUSCULAR HEMOGLOBIN 30.6 pg (28.0-32.0); MEAN CORPUSCULAR VOLUME 91.4 fL (81.0-99.0); MEAN PLATELET VOLUME 9.1 fl (7.4-10.4); PLATELET 376 x1000/uL (130-400); RED BLOOD CELL COUNT 3.95 mill/uL (4.2-5.4); RED CELL DISTRIBUTION WIDTH 16.3 % (11.6-14.6)
[2022-12-08 08:28] LABS: HEMATOCRIT. 36.1 % (36.0-48.0); HEMOGLOBIN. 12.1 g/dL (12.0-16.0)
[2022-12-08] MEDS: IPRATROPIUM BROMIDE (0.02%) 0.5MG/2.5ML NEB HHN SCH ×4 (08:52→21:15)
[2022-12-08] MEDS: ALBUTEROL (0.083%) 2.5MG/3ML NEB HHN SCH ×4 (08:53→21:15)
[2022-12-08] MEDS ORDERED: AMLODIPINE 10MG TABLET PO SCH (09:00)
[2022-12-08] MEDS: AMLODIPINE 2.5MG TABLET PO SCH ×2 (09:00→17:44)
[2022-12-08] MEDS: LOSARTAN POTASSIUM 50 MG TABLET PO SCH (09:58)
[2022-12-08] MEDS: PREDNISONE 20MG TABLET PO SCH ×2 (09:58→17:43)
[2022-12-08] MEDS: CLOPIDOGREL 75MG TABLET PO SCH (09:59)
[2022-12-08] MEDS: ENOXAPARIN 30MG/0.3ML SYR SUBCUT SCH ×2 (10:00→21:48)
[2022-12-08 12:00] VITALS: BP 133/54
[2022-12-08] MEDS: SODIUM CHLORIDE 0.9% 1,000 ML IV SCH (14:25)
[2022-12-08 16:00] VITALS: BP 129/61
[2022-12-08 16:00] LABS: PLATELET ESTIMATE NORMAL
[2022-12-08 20:00] VITALS: BP 131/69
[2022-12-08] MEDS: ATORVASTATIN CALCIUM 40MG TABLET PO SCH (21:48)
[2022-12-08] MEDS: INSULIN GLARGINE 100 UNITS/ML SUBCUT SCH (21:50)
[2022-12-09] VITALS (7 sets, daily range): BP systolic 119–177; BP diastolic 54–78
[2022-12-09] MEDS: IPRATROPIUM BROMIDE (0.02%) 0.5MG/2.5ML NEB HHN SCH ×6 (00:58→21:03)
[2022-12-09] MEDS: ALBUTEROL (0.083%) 2.5MG/3ML NEB HHN SCH ×6 (00:58→21:03)
[2022-12-09 06:24] LABS: BASOPHILS % 1.2 % (0.0-2.0); HEMATOCRIT. 33.1 % (36.0-48.0); HEMOGLOBIN. 11.2 g/dL (12.0-16.0); LYMPHOCYTES % 10.2 % (20.0-50.0); MEAN CORPUSCULAR HEMOGLOBIN 30.2 pg (28.0-32.0); MEAN CORPUSCULAR VOLUME 89.6 fL (81.0-99.0); MEAN PLATELET VOLUME 9.2 fl (7.4-10.4); NEUTROPHILS % 82.6 % (40.0-76.0); PLATELET 326 x1000/uL (130-400); RED CELL DISTRIBUTION WIDTH 16.1 % (11.6-14.6)
[2022-12-09] MEDS: INSULIN LISPRO 100 UNITS/ML SUBCUT SCH ×4 (07:14→21:05)
[2022-12-09] MEDS: BLOOD SUGAR DIAGNOSTIC STRIP TEST SCH ×4 (07:14→21:00)
[2022-12-09 07:43] LABS: CHLORIDE 109 mEq/L (98-107)
[2022-12-09 07:56] LABS: T4 FREE 0.91 ng/dL (0.76-1.46)
[2022-12-09] MEDS: CLOPIDOGREL 75MG TABLET PO SCH (09:21)
[2022-12-09] MEDS: PREDNISONE 20MG TABLET PO SCH ×2 (09:22→17:29)
[2022-12-09] MEDS: LOSARTAN POTASSIUM 50 MG TABLET PO SCH (09:22)
[2022-12-09] MEDS: ENOXAPARIN 30MG/0.3ML SYR SUBCUT SCH (09:23)
[2022-12-09] MEDS: AMLODIPINE 5MG TABLET PO SCH ×2 (09:29→21:06)
[2022-12-09] MEDS ORDERED: INSLIS SUBCUT (14:19)
[2022-12-09] MEDS ORDERED: ALBU2.5V13 HHN (14:19)
[2022-12-09] MEDS ORDERED: TOPUD PO (14:19)
[2022-12-09] MEDS ORDERED: LOV30 SUBCUT (14:19)
[2022-12-09] MEDS ORDERED: LIP40 PO (14:19)
[2022-12-09] MEDS ORDERED: CLOP75TA15 PO (14:19)
[2022-12-09] MEDS ORDERED: AMLO5TAB88 PO (14:19)
[2022-12-09] MEDS ORDERED: DEXT50DI6 IV (14:19)
[2022-12-09] MEDS ORDERED: ONDA4VIA22 IV (14:19)
[2022-12-09] MEDS ORDERED: LOSA50TA3 PO (14:19)
[2022-12-09] MEDS: INSULIN GLARGINE 100 UNITS/ML SUBCUT SCH (21:02)
[2022-12-09] MEDS: ATORVASTATIN CALCIUM 40MG TABLET PO SCH (21:05)
== END 2022-12-09 21:44 | DRG 638 ==
LOC: 8WST 17:49
PROVIDERS: ADMIT Internal Medicine; ATTEND Internal Medicine
DX: E11.65 Type 2 diabetes mellitus with hyperglycemia (principal); I42.2 Other hypertrophic cardiomyopathy; I50.30 Unspecified diastolic (congestive) heart failure; J84.9 Interstitial pulmonary disease, unspecified; J96.10 Chronic respiratory failure, unspecified whether with hypoxia or hypercapnia; R00.1 Bradycardia, unspecified; D64.9 Anemia, unspecified; E78.5 Hyperlipidemia, unspecified; I11.0 Hypertensive heart disease with heart failure; J44.9 Chronic obstructive pulmonary disease, unspecified; T38.0X5A Adverse effect of glucocorticoids and synthetic analogues, initial encounter; G47.33 Obstructive sleep apnea (adult) (pediatric); E11.51 Type 2 diabetes mellitus with diabetic peripheral angiopathy without gangrene; E05.90 Thyrotoxicosis, unspecified without thyrotoxic crisis or storm; Z86.16 Personal history of COVID-19; Z99.81 Dependence on supplemental oxygen; Z86.718 Personal history of other venous thrombosis and embolism; Z87.01 Personal history of pneumonia (recurrent); Z87.891 Personal history of nicotine dependence; Z91.81 History of falling
CPT/HCPCS: 36415; 36600; 80048; 82375; 82553; 82805; 82962; 83036; 83735; 84439; 84443; 84484; 85025; 87070; 93005; 94640; J1650; J1815; J7512

== ENCOUNTER 2022-12-09 21:35 | Inpatient (IN) | payer MEDICARE, BC, OTHER ==
[~2022-12-09] VITALS: Ht 165.1 cm; Wt 107.5 kg
[~2022-12-09 21:35] MED LIST changes: +ALBU2.5V13 HHN; -AMLO10TA80 MT; +AMLO5TAB88 PO; -APIX2.5T PO; -ASCO500C18 MT; -ASPI-1160 PO; -ATOR20TA65 MT; -ATROV3 BOTHNSTRLS; -CHOL400D7 MT; +CLOP75TA15 PO; -CLOP75TA33 MT; +DEXT50DI6 IV; -DEXTL MT; -DICL100G31 TP; -DOCU-150 MT; -FERR-63 PO; -FURO20TA4 MT; +INSLIS SUBCUT; -LACT10SO30 MT; +LIP40 PO; -LORA2DIS6 SQ; +LOSA50TA3 PO; -LOSA50TA41 PO; +LOV30 SUBCUT; +ONDA4VIA22 IV; -PSYL575P22 MT; -RISP1TAB97 MT; -SENN-257 MT; -SERT20OR6 PO; -TRAM50TA3 MT
[2022-12-09 21:50] VITALS: BP 142/76
[2022-12-09] MEDS ORDERED: ONDANSETRON HCL 4MG/2ML INJ IV PRN (22:15)
[2022-12-09] MEDS ORDERED: DEXTROSE 50% WATER 50ML SYRINGE IV PRN (22:15)
[2022-12-09] MEDS ORDERED: IPRATROPIUM/ALBUTEROL 0.5-3(2.5)MG/3ML NEB HHN PRN (22:15)
[2022-12-09] MEDS ORDERED: IPRATROPIUM BROMIDE (0.02%) 0.5MG/2.5ML NEB HHN PRN (22:45)
[2022-12-09] MEDS ORDERED: ALBUTEROL (0.083%) 2.5MG/3ML NEB HHN PRN (22:45)
[2022-12-10] MEDS ORDERED: IPRATROPIUM/ALBUTEROL 0.5-3(2.5)MG/3ML NEB HHN SCH
[2022-12-10] MEDS: PREDNISONE 20MG TABLET PO SCH ×3 (00:15→17:38)
[2022-12-10] MEDS: IPRATROPIUM BROMIDE (0.02%) 0.5MG/2.5ML NEB HHN SCH ×6 (01:06→22:54)
[2022-12-10] MEDS: ALBUTEROL (0.083%) 2.5MG/3ML NEB HHN SCH ×6 (01:06→22:54)
[2022-12-10] MEDS: BLOOD SUGAR DIAGNOSTIC STRIP TEST SCH ×4 (06:30→21:39)
[2022-12-10 08:00] VITALS: BP 139/69
[2022-12-10] MEDS: INSULIN LISPRO 100 UNITS/ML SUBCUT SCH ×4 (09:00→21:00)
[2022-12-10] MEDS ORDERED: ENOXAPARIN 40MG/0.4ML SYR SUBCUT SCH (09:00)
[2022-12-10] MEDS: LOSARTAN POTASSIUM 50 MG TABLET PO SCH (10:05)
[2022-12-10] MEDS: AMLODIPINE 5MG TABLET PO SCH ×2 (10:06→21:00)
[2022-12-10] MEDS: CLOPIDOGREL 75MG TABLET PO SCH (10:06)
[2022-12-10] MEDS: ENOXAPARIN 30MG/0.3ML SYR SUBCUT SCH ×2 (10:09→21:00)
[2022-12-10] MEDS: DOCUSATE SODIUM 100MG CAPSULE PO SCH (20:30)
[2022-12-10] MEDS: ATORVASTATIN CALCIUM 40MG TABLET PO SCH (21:00)
[2022-12-10] MEDS ORDERED: INSULIN GLARGINE 100 UNITS/ML SUBCUT SCH (22:00)
[2022-12-11] MEDS: ALBUTEROL (0.083%) 2.5MG/3ML NEB HHN SCH ×6 (05:03→20:55)
[2022-12-11] MEDS: IPRATROPIUM BROMIDE (0.02%) 0.5MG/2.5ML NEB HHN SCH ×6 (05:03→20:54)
[2022-12-11 06:47] LABS: BASOPHILS % 0.2 % (0.0-2.0); HEMATOCRIT. 31.9 % (36.0-48.0); HEMOGLOBIN. 10.7 g/dL (12.0-16.0); LYMPHOCYTES % 11.7 % (20.0-50.0); MEAN CORPUSCULAR HEMOGLOBIN 30.4 pg (28.0-32.0); MEAN CORPUSCULAR VOLUME 90.7 fL (81.0-99.0); MEAN PLATELET VOLUME 8.4 fl (7.4-10.4); MONOCYTES % 7.3 % (2.0-8.0); NEUTROPHILS % 80.8 % (40.0-76.0); PLATELET 324 x1000/uL (130-400); RED BLOOD CELL COUNT 3.51 mill/uL (4.2-5.4); RED CELL DISTRIBUTION WIDTH 16.3 % (11.6-14.6)
[2022-12-11] MEDS: BLOOD SUGAR DIAGNOSTIC STRIP TEST SCH ×4 (07:00→21:00)
[2022-12-11 07:02] LABS: CHLORIDE 106 mEq/L (98-107)
[2022-12-11 08:17] VITALS: BP 173/64
[2022-12-11] MEDS: ENOXAPARIN 30MG/0.3ML SYR SUBCUT SCH ×2 (09:00→20:46)
[2022-12-11] MEDS: INSULIN LISPRO 100 UNITS/ML SUBCUT SCH ×4 (09:00→20:53)
[2022-12-11] MEDS: DOCUSATE SODIUM 100MG CAPSULE PO SCH ×2 (10:44→17:48)
[2022-12-11] MEDS: CLOPIDOGREL 75MG TABLET PO SCH (10:45)
[2022-12-11] MEDS: PREDNISONE 20MG TABLET PO SCH ×2 (10:45→17:48)
[2022-12-11] MEDS: AMLODIPINE 5MG TABLET PO SCH ×2 (10:45→20:47)
[2022-12-11] MEDS: LOSARTAN POTASSIUM 50 MG TABLET PO SCH (10:46)
[2022-12-11] MEDS: LACTULOSE 20G/30ML UDC PO PRN ×3 (15:57→20:52)
[2022-12-11 20:00] VITALS: BP 121/78
[2022-12-11] MEDS: ATORVASTATIN CALCIUM 40MG TABLET PO SCH (20:46)
[2022-12-12] MEDS: IPRATROPIUM BROMIDE (0.02%) 0.5MG/2.5ML NEB HHN SCH ×6 (01:08→20:16)
[2022-12-12] MEDS: ALBUTEROL (0.083%) 2.5MG/3ML NEB HHN SCH ×6 (01:09→20:16)
[2022-12-12] MEDS: BLOOD SUGAR DIAGNOSTIC STRIP TEST SCH ×4 (06:47→20:55)
[2022-12-12 08:00] VITALS: BP 133/58
[2022-12-12] MEDS: INSULIN LISPRO 100 UNITS/ML SUBCUT SCH ×4 (09:00→21:00)
[2022-12-12] MEDS: PREDNISONE 20MG TABLET PO SCH (09:17)
[2022-12-12] MEDS: DOCUSATE SODIUM 100MG CAPSULE PO SCH ×2 (09:17→17:00)
[2022-12-12] MEDS: ENOXAPARIN 30MG/0.3ML SYR SUBCUT SCH ×2 (09:18→20:55)
[2022-12-12] MEDS: AMLODIPINE 5MG TABLET PO SCH ×2 (09:18→20:54)
[2022-12-12] MEDS: LOSARTAN POTASSIUM 50 MG TABLET PO SCH (09:18)
[2022-12-12] MEDS: CLOPIDOGREL 75MG TABLET PO SCH (09:18)
[2022-12-12 19:44] VITALS: BP 133/65
[2022-12-12] MEDS: ATORVASTATIN CALCIUM 40MG TABLET PO SCH (20:54)
[2022-12-13] MEDS: IPRATROPIUM BROMIDE (0.02%) 0.5MG/2.5ML NEB HHN SCH ×6 (00:31→21:53)
[2022-12-13] MEDS: ALBUTEROL (0.083%) 2.5MG/3ML NEB HHN SCH ×6 (00:31→21:53)
[2022-12-13] MEDS: BLOOD SUGAR DIAGNOSTIC STRIP TEST SCH ×4 (06:30→20:58)
[2022-12-13 06:39] LABS: BASOPHILS % 0.1 % (0.0-2.0); EOSINOPHILS % 0.1 % (0.0-5.0); HEMATOCRIT. 35.6 % (36.0-48.0); HEMOGLOBIN. 11.8 g/dL (12.0-16.0); LYMPHOCYTES % 21.6 % (20.0-50.0); MEAN CORPUSCULAR HEMOGLOBIN 30.4 pg (28.0-32.0); MEAN CORPUSCULAR VOLUME 91.7 fL (81.0-99.0); MEAN PLATELET VOLUME 8.8 fl (7.4-10.4); MONOCYTES % 6.9 % (2.0-8.0); NEUTROPHILS % 71.3 % (40.0-76.0); PLATELET 301 x1000/uL (130-400); RED BLOOD CELL COUNT 3.88 mill/uL (4.2-5.4); RED CELL DISTRIBUTION WIDTH 16.8 % (11.6-14.6)
[2022-12-13 07:19] LABS: CHLORIDE 106 mEq/L (98-107)
[2022-12-13] MEDS: INSULIN LISPRO 100 UNITS/ML SUBCUT SCH ×4 (09:00→21:07)
[2022-12-13] MEDS: DOCUSATE SODIUM 100MG CAPSULE PO SCH ×2 (09:01→17:25)
[2022-12-13] MEDS: ENOXAPARIN 30MG/0.3ML SYR SUBCUT SCH ×2 (09:01→20:53)
[2022-12-13] MEDS: PREDNISONE 10MG TABLET PO SCH (09:02)
[2022-12-13] MEDS: AMLODIPINE 5MG TABLET PO SCH ×2 (09:02→20:53)
[2022-12-13] MEDS: LOSARTAN POTASSIUM 50 MG TABLET PO SCH (09:02)
[2022-12-13] MEDS: CLOPIDOGREL 75MG TABLET PO SCH (09:02)
[2022-12-13 20:00] VITALS: BP 127/67
[2022-12-13] MEDS: ATORVASTATIN CALCIUM 40MG TABLET PO SCH (20:52)
[2022-12-13] MEDS: LACTULOSE 20G/30ML UDC PO PRN (20:53)
[2022-12-14] MEDS: ALBUTEROL (0.083%) 2.5MG/3ML NEB HHN SCH ×5 (02:03→21:27)
[2022-12-14] MEDS: IPRATROPIUM BROMIDE (0.02%) 0.5MG/2.5ML NEB HHN SCH ×5 (02:03→21:27)
[2022-12-14] MEDS: BLOOD SUGAR DIAGNOSTIC STRIP TEST SCH ×4 (06:32→21:17)
[2022-12-14] MEDS: INSULIN LISPRO 100 UNITS/ML SUBCUT SCH ×4 (06:33→21:00)
[2022-12-14 08:00] VITALS: BP 123/66
[2022-12-14] MEDS: DOCUSATE SODIUM 100MG CAPSULE PO SCH ×2 (09:58→16:47)
[2022-12-14] MEDS: CLOPIDOGREL 75MG TABLET PO SCH (09:59)
[2022-12-14] MEDS: LOSARTAN POTASSIUM 50 MG TABLET PO SCH (09:59)
[2022-12-14] MEDS: AMLODIPINE 5MG TABLET PO SCH ×2 (09:59→21:13)
[2022-12-14] MEDS: ENOXAPARIN 30MG/0.3ML SYR SUBCUT SCH ×2 (10:00→21:14)
[2022-12-14] MEDS: PREDNISONE 10MG TABLET PO SCH (10:00)
[2022-12-14] MEDS: BISACODYL 5MG TABLET PO PRN ×2 (17:04→20:45)
[2022-12-14] MEDS: LACTULOSE 20G/30ML UDC PO SCH ×2 (17:20→20:09)
[2022-12-14] MEDS: PSYLLIUM SEED PACKET PO SCH ×2 (17:21→20:09)
[2022-12-14] MEDS ORDERED: NA PHOS,M-B/NA PHOS,DI-BA ENEMA 118ML PR PRN (18:00)
[2022-12-14 20:00] VITALS: BP 112/53
[2022-12-14] MEDS: ATORVASTATIN CALCIUM 40MG TABLET PO SCH (21:13)
[2022-12-15] MEDS: ALBUTEROL (0.083%) 2.5MG/3ML NEB HHN SCH ×3 (00:43→22:29)
[2022-12-15] MEDS: IPRATROPIUM BROMIDE (0.02%) 0.5MG/2.5ML NEB HHN SCH ×3 (00:44→22:28)
[2022-12-15] MEDS: BLOOD SUGAR DIAGNOSTIC STRIP TEST SCH ×4 (06:09→20:31)
[2022-12-15] MEDS: INSULIN LISPRO 100 UNITS/ML SUBCUT SCH ×4 (06:50→21:00)
[2022-12-15 07:09] LABS: BASOPHILS % 0.4 % (0.0-2.0); EOSINOPHILS % 1.6 % (0.0-5.0); HEMATOCRIT. 33.4 % (36.0-48.0); HEMOGLOBIN. 10.9 g/dL (12.0-16.0); LYMPHOCYTES % 26.5 % (20.0-50.0); MEAN CORPUSCULAR HEMOGLOBIN 30.1 pg (28.0-32.0); MEAN CORPUSCULAR VOLUME 92.1 fL (81.0-99.0); MONOCYTES % 5.8 % (2.0-8.0); NEUTROPHILS % 65.7 % (40.0-76.0); PLATELET 236 x1000/uL (130-400); RED BLOOD CELL COUNT 3.63 mill/uL (4.2-5.4); RED CELL DISTRIBUTION WIDTH 16.8 % (11.6-14.6)
[2022-12-15 07:35] LABS: CHLORIDE 106 mEq/L (98-107)
[2022-12-15 08:00] VITALS: BP 149/62
[2022-12-15] MEDS: LACTULOSE 20G/30ML UDC PO SCH ×2 (09:51→16:53)
[2022-12-15] MEDS: LOSARTAN POTASSIUM 50 MG TABLET PO SCH (09:52)
[2022-12-15] MEDS: DOCUSATE SODIUM 100MG CAPSULE PO SCH ×2 (09:52→16:53)
[2022-12-15] MEDS: PSYLLIUM SEED PACKET PO SCH ×2 (09:52→16:53)
[2022-12-15] MEDS: AMLODIPINE 5MG TABLET PO SCH ×2 (09:52→20:31)
[2022-12-15] MEDS: BISACODYL 5MG TABLET PO PRN (09:53)
[2022-12-15] MEDS: CLOPIDOGREL 75MG TABLET PO SCH (09:53)
[2022-12-15] MEDS: PREDNISONE 10MG TABLET PO SCH (09:53)
[2022-12-15] MEDS: ENOXAPARIN 30MG/0.3ML SYR SUBCUT SCH ×2 (09:53→20:30)
[2022-12-15] MEDS ORDERED: IPRATROPIUM BROMIDE (0.02%) 0.5MG/2.5ML NEB HHN PRN (12:15)
[2022-12-15] MEDS ORDERED: ALBUTEROL (0.083%) 2.5MG/3ML NEB HHN PRN (12:15)
[2022-12-15] MEDS ORDERED: IPRATROPIUM/ALBUTEROL 0.5-3(2.5)MG/3ML NEB HHN PRN (12:15)
[2022-12-15] MEDS ORDERED: BISACODYL 10MG SUPP PR PRN (17:45)
[2022-12-15] MEDS ORDERED: IPRATROPIUM/ALBUTEROL 0.5-3(2.5)MG/3ML NEB HHN SCH (18:00)
[2022-12-15 20:00] VITALS: BP_SYST 120; BP_SYST 141; BP_DIAS 57; BP_DIAS 72
[2022-12-15] MEDS: ACYCLOVIR 400 MG TABLET PO SCH (20:30)
[2022-12-15] MEDS: ATORVASTATIN CALCIUM 40MG TABLET PO SCH (20:31)
[2022-12-15] MEDS: CAPSAICIN 0.075% CREAM 60GM TOP PRN (20:37)
[2022-12-15] MEDS: DIPHENHYDRAMINE 50MG CAPSULE PO PRN (21:54)
[2022-12-16] MEDS: IPRATROPIUM BROMIDE (0.02%) 0.5MG/2.5ML NEB HHN SCH ×3 (01:19→15:12)
[2022-12-16] MEDS: ALBUTEROL (0.083%) 2.5MG/3ML NEB HHN SCH ×3 (01:19→15:12)
[2022-12-16] MEDS: ACETAMINOPHEN 325MG TABLET PO PRN ×2 (04:14→11:00)
[2022-12-16] MEDS: BLOOD SUGAR DIAGNOSTIC STRIP TEST SCH ×4 (06:50→20:58)
[2022-12-16] MEDS: ACYCLOVIR 400 MG TABLET PO SCH ×3 (06:51→18:32)
[2022-12-16 07:20] LABS: BASOPHILS % 0.5 % (0.0-2.0); EOSINOPHILS % 2.6 % (0.0-5.0); HEMATOCRIT. 32.5 % (36.0-48.0); HEMOGLOBIN. 10.9 g/dL (12.0-16.0); LYMPHOCYTES % 27.8 % (20.0-50.0); MEAN CORPUSCULAR HEMOGLOBIN 30.8 pg (28.0-32.0); MEAN CORPUSCULAR VOLUME 91.9 fL (81.0-99.0); MEAN PLATELET VOLUME 9.1 fl (7.4-10.4); MONOCYTES % 6.9 % (2.0-8.0); NEUTROPHILS % 62.2 % (40.0-76.0); PLATELET 221 x1000/uL (130-400); RED BLOOD CELL COUNT 3.53 mill/uL (4.2-5.4); RED CELL DISTRIBUTION WIDTH 17.6 % (11.6-14.6)
[2022-12-16 08:00] VITALS: BP 125/56
[2022-12-16] MEDS ORDERED: SORBITOL 70% SOLN 30ML PO NR (08:00)
[2022-12-16 08:39] LABS: CHLORIDE 107 mEq/L (98-107)
[2022-12-16] MEDS: INSULIN LISPRO 100 UNITS/ML SUBCUT SCH ×4 (09:00→20:58)
[2022-12-16] MEDS: DOCUSATE SODIUM 100MG CAPSULE PO SCH ×2 (09:36→17:26)
[2022-12-16] MEDS: LOSARTAN POTASSIUM 50 MG TABLET PO SCH (09:37)
[2022-12-16] MEDS: PSYLLIUM SEED PACKET PO SCH ×2 (09:37→17:26)
[2022-12-16] MEDS: CLOPIDOGREL 75MG TABLET PO SCH (09:37)
[2022-12-16] MEDS: AMLODIPINE 5MG TABLET PO SCH ×2 (09:37→20:58)
[2022-12-16] MEDS: ENOXAPARIN 30MG/0.3ML SYR SUBCUT SCH ×2 (09:38→20:57)
[2022-12-16] MEDS: LACTULOSE 20G/30ML UDC PO SCH ×2 (09:39→17:26)
[2022-12-16] MEDS: DIPHENHYDRAMINE 50MG CAPSULE PO PRN (14:53)
[2022-12-16] MEDS: CAPSAICIN 0.075% CREAM 60GM TOP PRN (14:59)
[2022-12-16] MEDS: ATORVASTATIN CALCIUM 40MG TABLET PO SCH (20:57)
[2022-12-17] MEDS: ACYCLOVIR 400 MG TABLET PO SCH ×4 (01:49→19:56)
[2022-12-17] MEDS: ALBUTEROL (0.083%) 2.5MG/3ML NEB HHN SCH ×4 (02:42→22:17)
[2022-12-17] MEDS: IPRATROPIUM BROMIDE (0.02%) 0.5MG/2.5ML NEB HHN SCH ×4 (02:42→22:17)
[2022-12-17] MEDS: BLOOD SUGAR DIAGNOSTIC STRIP TEST SCH ×4 (06:30→20:57)
[2022-12-17 08:00] VITALS: BP 115/53
[2022-12-17] MEDS: LACTULOSE 20G/30ML UDC PO SCH ×2 (08:54→17:54)
[2022-12-17] MEDS: PSYLLIUM SEED PACKET PO SCH ×2 (08:54→17:00)
[2022-12-17] MEDS: CLOPIDOGREL 75MG TABLET PO SCH (08:54)
[2022-12-17] MEDS: DOCUSATE SODIUM 100MG CAPSULE PO SCH ×2 (08:54→17:54)
[2022-12-17] MEDS: LOSARTAN POTASSIUM 50 MG TABLET PO SCH (08:55)
[2022-12-17] MEDS: AMLODIPINE 5MG TABLET PO SCH ×2 (08:59→20:57)
[2022-12-17] MEDS: ENOXAPARIN 30MG/0.3ML SYR SUBCUT SCH ×2 (09:00→20:57)
[2022-12-17] MEDS: INSULIN LISPRO 100 UNITS/ML SUBCUT SCH ×4 (09:00→21:00)
[2022-12-17 09:08] LABS: BASOPHILS % 0.7 % (0.0-2.0); EOSINOPHILS % 2.8 % (0.0-5.0); HEMATOCRIT. 30.8 % (36.0-48.0); HEMOGLOBIN. 10.2 g/dL (12.0-16.0); LYMPHOCYTES % 32.1 % (20.0-50.0); MEAN CORPUSCULAR HEMOGLOBIN 30.7 pg (28.0-32.0); MEAN CORPUSCULAR VOLUME 92.8 fL (81.0-99.0); MEAN PLATELET VOLUME 8.9 fl (7.4-10.4); MONOCYTES % 8.3 % (2.0-8.0); NEUTROPHILS % 56.1 % (40.0-76.0); PLATELET 191 x1000/uL (130-400); RED BLOOD CELL COUNT 3.31 mill/uL (4.2-5.4)
[2022-12-17 09:14] LABS: CHLORIDE 106 mEq/L (98-107)
[2022-12-17] MEDS: ACETAMINOPHEN 325MG TABLET PO PRN (15:08)
[2022-12-17 19:58] VITALS: BP 115/52
[2022-12-17] MEDS: ATORVASTATIN CALCIUM 40MG TABLET PO SCH (20:57)
[2022-12-18] MEDS: ACYCLOVIR 400 MG TABLET PO SCH ×3 (00:33→12:03)
[2022-12-18] MEDS: DIPHENHYDRAMINE 50MG CAPSULE PO PRN (00:40)
[2022-12-18] MEDS: ALBUTEROL (0.083%) 2.5MG/3ML NEB HHN SCH ×3 (02:10→12:00)
[2022-12-18] MEDS: IPRATROPIUM BROMIDE (0.02%) 0.5MG/2.5ML NEB HHN SCH ×3 (02:10→12:00)
[2022-12-18] MEDS: BLOOD SUGAR DIAGNOSTIC STRIP TEST SCH ×2 (06:30→09:02)
[2022-12-18 08:00] VITALS: BP 102/51
[2022-12-18] MEDS: LOSARTAN POTASSIUM 50 MG TABLET PO SCH (08:56)
[2022-12-18] MEDS: CLOPIDOGREL 75MG TABLET PO SCH (08:56)
[2022-12-18] MEDS: LACTULOSE 20G/30ML UDC PO SCH (08:56)
[2022-12-18] MEDS: DOCUSATE SODIUM 100MG CAPSULE PO SCH (08:56)
[2022-12-18] MEDS: AMLODIPINE 5MG TABLET PO SCH (08:57)
[2022-12-18] MEDS: PSYLLIUM SEED PACKET PO SCH (09:00)
[2022-12-18] MEDS: INSULIN LISPRO 100 UNITS/ML SUBCUT SCH (09:00)
[2022-12-18] MEDS: ENOXAPARIN 30MG/0.3ML SYR SUBCUT SCH (09:00)
[2022-12-18 12:17] VITALS: BP 102/51
== END 2022-12-18 14:24 | disposition home health service (06) | DRG 189 ==
PROVIDERS: ADMIT Psychiatry & Neurology Neurology; ATTEND Internal Medicine
DX: J96.11 Chronic respiratory failure with hypoxia (principal); J84.9 Interstitial pulmonary disease, unspecified; I31.39 Other pericardial effusion (noninflammatory); I42.9 Cardiomyopathy, unspecified; I50.30 Unspecified diastolic (congestive) heart failure; I11.0 Hypertensive heart disease with heart failure; E05.90 Thyrotoxicosis, unspecified without thyrotoxic crisis or storm; G47.33 Obstructive sleep apnea (adult) (pediatric); E11.65 Type 2 diabetes mellitus with hyperglycemia; D64.9 Anemia, unspecified; J44.9 Chronic obstructive pulmonary disease, unspecified; B02.9 Zoster without complications; E78.5 Hyperlipidemia, unspecified; F39 Unspecified mood [affective] disorder; K59.00 Constipation, unspecified; T38.0X5A Adverse effect of glucocorticoids and synthetic analogues, initial encounter; R42 Dizziness and giddiness; R00.1 Bradycardia, unspecified; R53.1 Weakness; E66.01 Morbid (severe) obesity due to excess calories; R06.89 Other abnormalities of breathing; E11.51 Type 2 diabetes mellitus with diabetic peripheral angiopathy without gangrene; Z86.718 Personal history of other venous thrombosis and embolism; Z86.16 Personal history of COVID-19; Z87.891 Personal history of nicotine dependence; Z79.84 Long term (current) use of oral hypoglycemic drugs; Z79.899 Other long term (current) drug therapy; Z68.39 Body mass index [BMI] 39.0-39.9, adult; Z99.81 Dependence on supplemental oxygen; Z91.81 History of falling; Z90.49 Acquired absence of other specified parts of digestive tract; Z87.01 Personal history of pneumonia (recurrent); Y92.89 Other specified places as the place of occurrence of the external cause
CPT/HCPCS: 36415; 80048; 80076; 82962; 85025; 93970; 94640; 97110; 97112; 97116; 97150; 97530; 97535; J1650; J1815; J7512; Q0163

== ENCOUNTER 2023-03-19 09:53 | Emergency (ER) | payer MEDICARE, BC ==
[~2023-03-19] VITALS: Ht 165.1 cm; Wt 80.0 kg
[~2023-03-19 09:53] MED LIST changes: -INSLIS SUBCUT; -LOV30 SUBCUT; -ONDA4VIA22 IV
[2023-03-19] MEDS ORDERED: CYCL5TAB MT (12:25)
[2023-03-19] MEDS ORDERED: MELO-106 MT (12:25)
[2023-03-19 12:30] VITALS: BP 142/67
[2023-03-19] MEDS ORDERED: HYDROCODONE/ACETAMINOPHEN 5/325MG TABLET PO ONE (12:30)
== END 2023-03-19 12:59 | disposition home or self-care (01) ==
LOC: ER 09:53
DX: M54.9 Dorsalgia, unspecified (principal); I10 Essential (primary) hypertension; E78.00 Pure hypercholesterolemia, unspecified; Z98.890 Other specified postprocedural states
CPT/HCPCS: 72131; 93971; 99284